=== PATIENT | female | born 1950 | race African-American/Black ===

== ENCOUNTER 2017-08-15 20:13 | Inpatient (IN) ==
[2017-08-15] MEDS ORDERED: SODIUM CHLORIDE 0.9% 500 ML IV STA ×2 (20:59→22:55)
[2017-08-15] MEDS ORDERED: MORPHINE 4 MG/1 ML VIAL IV STA ×2 (20:59→22:55)
[2017-08-15] MEDS ORDERED: ALUM/MAG/SIMETH/LIDO VISC 1:1 30 ML BOTTLE PO STA (20:59)
[2017-08-15] MEDS ORDERED: ONDANSETRON 4 MG/2 ML VIAL IV STA (20:59)
[2017-08-15 21:19] LABS: Basophils % 0.2 % (0.0-0.8); Hematocrit 41.6 VOL% (35.7-47.0); Hemoglobin 13.8 GM/DL (12.0-16.0); Immature Granulocytes % 0.5 %; Immature Granulocytes Absolute 0.06 #; Lymphocytes % 8.3 % (21.3-54.2); Mean Corpuscular HGB Conc 33.2 GM/DL (32-36); Mean Corpuscular Hemoglobin 30 PG (27-34); Mean Platelet Volume 9.4 FL (9.6-12.0); Monocytes # 0.2 10*3/uL (0.11-0.8); Monocytes % 1.6 % (1.7-12.7); Neutrophils # 10.9 10*3/uL (1.4-7.4); Neutrophils % 89.4 % (38.7-73.9); Platelet Count 215 T/CUMM (130-400); Red Blood Count 4.57 MC/CUMM (3.8-5.5); White Blood Count 12.2 T/CUMM (4-12)
[2017-08-15] MEDS ORDERED: MORPHINE 10 MG/1 ML VIAL ONE (21:40)
[2017-08-15 21:47] LABS: PT Patient Result 10.7 SECS
[2017-08-15 21:51] LABS: Alanine Aminotransferase 21 U/L (13-56); Albumin 3.3 G/DL (3.4-5.0); Alkaline Phosphatase 106 U/L (45-117); Amylase 158 U/L (25-115); Aspartate Amino Transferase 20 U/L (0-37); Blood Urea Nitrogen 30 MG/DL (7-18); Calcium 9.7 MG/DL (8.5-10.1); Glucose 182 MG/DL (74-106); Lactic Acid 3.4 MMOL/L (0.4-2.0); Osmolality,Calculated 283.8 MOS/KG (273-304); Potassium 4.4 MMOL/L (3.5-5.1); Sodium 137 MMOL/L (136-145); Total Protein 8.7 G/DL (6.4-8.3); Troponin I Only < 0.015 NG/ML (0.00-0.045)
[2017-08-15] MEDS ORDERED: cefTRIAXone 1,000 MG in SODIUM CHLORIDE 0.9% 100 ML IV STA (22:21)
[2017-08-15 22:23] LABS: ABG Base Excess -7.2 MMOL/L (-2.5-2.5); ABG HCO3 18.6 MMOL/L (20-26); ABG PCO2 33.2 MM HG (35-48); ABG PH 7.336 (7.35-7.45); ABG PO2 93.7 MM HG (80-95); ABG TCO2 15.7 MMOL/L (23-27)
[2017-08-15 22:27] LABS: Amorphous Crystals,Urine Few /HPF (Few); Apearance,Urine Slightly Hazy (Clear); Bacteria,Urine Occasional /HPF (Few); Bilirubin,Urine Negative (Negative); Blood, Urine Small mg/dL (Negative); Glucose,Urine (UA) Negative (Negative); Hyaline Casts,Urine 6 /LPF (0-3); Ketones,Urine Negative (Negative); Mucus,Urine Occasional /LPF (Occasional); Nitrite,Urine Negative (Negative); Protein,Urine Negative; RBC,Urine 1 /HPF (0-4); Squamous Epithelial Cell,Urine Occasional /HPF (0-10); Urine Color Yellow (Yellow); Urine Specific Gravity 1.011 (1.001-1.035); Urine Urobilinogen < 2.0 EU/DL (0.2-1.0); WBC,Urine 1 /HPF (0-6)
[2017-08-15] MEDS ORDERED: hydrALAZINE 20 MG/1 ML VIAL IV STA ×2 (22:55→23:55)
[2017-08-16] MEDS ORDERED: ACETAMINOPHEN 325 MG TABLET PO PRN (01:08)
[2017-08-16] MEDS ORDERED: PROMETHAZINE 25 MG/1 ML VIAL IM PRN (01:08)
[2017-08-16] MEDS ORDERED: MORPHINE 4 MG/1 ML VIAL IV PRN (01:08)
[2017-08-16] MEDS ORDERED: tiZANidine 4 MG TABLET PO PRN (01:18)
[2017-08-16] MEDS ORDERED: hydrALAZINE 20 MG/1 ML VIAL IV PRN (01:21)
[2017-08-16] MEDS ORDERED: tiZANidine 4 MG TABLET PO ONE (02:30)
[2017-08-16] MEDS: SODIUM CHLORIDE 0.9% 1,000 ML IV SCH ×3 (03:06→20:55)
[2017-08-16 06:16] LABS: Calcium 8.8 MG/DL (8.5-10.1); Potassium 5.9 MMOL/L (3.5-5.1)
[2017-08-16 08:09] LABS: Basophils % 0.3 % (0.0-0.8); Hematocrit 37.4 VOL% (35.7-47.0); Hemoglobin 12.1 GM/DL (12.0-16.0); Immature Granulocytes % 0.5 %; Immature Granulocytes Absolute 0.07 #; Lymphocytes # 1.7 10*3/uL (1.4-4.0); Lymphocytes % 12.8 % (21.3-54.2); Mean Corpuscular HGB Conc 32.4 GM/DL (32-36); Mean Corpuscular Hemoglobin 30 PG (27-34); Mean Corpuscular Volume 93.5 FL (87-102); Mean Platelet Volume 9.3 FL (9.6-12.0); Monocytes # 0.7 10*3/uL (0.11-0.8); Monocytes % 5.4 % (1.7-12.7); Neutrophils # 10.7 10*3/uL (1.4-7.4); Platelet Count 182 T/CUMM (130-400); Red Cell Distribution Width 13.1 % (9.3-17.3); White Blood Count 13.3 T/CUMM (4-12)
[2017-08-16] MEDS ORDERED: POTASSIUM CHLORIDE 20 MEQ TABLET PO SCH (09:00)
[2017-08-16] MEDS ORDERED: RIVAROXABAN 20 MG TABLET PO SCH (09:00)
[2017-08-16] MEDS: GABAPENTIN 400 MG CAPSULE PO SCH ×3 (09:22→21:15)
[2017-08-16] MEDS: FLUoxetine 20 MG CAPSULE PO SCH (09:22)
[2017-08-16] MEDS: CILOSTAZOL 100 MG TABLET PO SCH ×2 (09:22→21:15)
[2017-08-16] MEDS: ASPIRIN EC 81 MG TABLET PO SCH (09:23)
[2017-08-16] MEDS ORDERED: ENOXAPARIN 120 MG/0.8 ML SYRINGE SUBCUT SCH (13:30)
[2017-08-16] MEDS ORDERED: SODIUM POLYSTYRENE SULFATE 15 GM/60 ML BOTTLE PO STA (15:38)
[2017-08-16 16:59] LABS: Calcium 8.6 MG/DL (8.5-10.1); Osmolality,Calculated 287.5 MOS/KG (273-304); Potassium 4.7 MMOL/L (3.5-5.1)
[2017-08-16] MEDS: cefTRIAXone 1,000 MG in SYRINGE 1 EACH IV SCH (17:20)
[2017-08-16] MEDS: metroNIDAZOLE INJ 500 MG in PREMIX 1 EACH IV SCH ×2 (17:20→23:38)
[2017-08-16] MEDS: ATORVASTATIN 10 MG TABLET PO SCH (21:15)
[2017-08-16] MEDS: HEPARIN DRIP 25,000 UNITS/500 ML PREMIX IV SCH (21:24)
[2017-08-16 23:24] LABS: Hepatitis A Ab IgM Result Negative (Negative); Hepatitis B Core IgM Quant 0.09 Index; Hepatitis B Core IgM Result Negative (Negative); Hepatitis B Surface Ag Quant 0.99 Index; Hepatitis B Surface Ag Result Negative (Negative); Hepatitis C Virus Ab Quant 0.09 Index; Hepatitis C Virus Ab Result Negative (Negative)
[2017-08-17 03:21] LABS: Basophils # 0.1 10*3/uL (0.0-0.2); Basophils % 0.3 % (0.0-0.8); Eosinophils % 0.2 % (0.00-10.9); Hematocrit 34.3 VOL% (35.7-47.0); Hemoglobin 10.9 GM/DL (12.0-16.0); Immature Granulocytes % 0.9 %; Immature Granulocytes Absolute 0.17 #; Lymphocytes # 1.5 10*3/uL (1.4-4.0); Lymphocytes % 7.4 % (21.3-54.2); Mean Corpuscular HGB Conc 31.8 GM/DL (32-36); Mean Corpuscular Hemoglobin 30 PG (27-34); Mean Corpuscular Volume 95.3 FL (87-102); Mean Platelet Volume 9.4 FL (9.6-12.0); Monocytes # 1.4 10*3/uL (0.11-0.8); Monocytes % 7.1 % (1.7-12.7); Neutrophils # 16.7 10*3/uL (1.4-7.4); Neutrophils % 84.1 % (38.7-73.9); Platelet Count 147 T/CUMM (130-400); Red Cell Distribution Width 13.2 % (9.3-17.3); White Blood Count 19.8 T/CUMM (4-12)
[2017-08-17] MEDS: SODIUM CHLORIDE 0.9% 1,000 ML IV SCH ×2 (03:49→05:54)
[2017-08-17 03:50] LABS: Osmolality,Calculated 287.8 MOS/KG (273-304); Potassium 4.9 MMOL/L (3.5-5.1)
[2017-08-17] MEDS: FLUoxetine 20 MG CAPSULE PO SCH (08:03)
[2017-08-17] MEDS: metroNIDAZOLE INJ 500 MG in PREMIX 1 EACH IV SCH ×2 (08:03→16:33)
[2017-08-17] MEDS: CILOSTAZOL 100 MG TABLET PO SCH ×2 (08:03→21:15)
[2017-08-17] MEDS: ASPIRIN EC 81 MG TABLET PO SCH (08:03)
[2017-08-17] MEDS ORDERED: PHENOL 1.4% THROAT SPRAY 177 ML BOTTLE PO PRN (08:11)
[2017-08-17] MEDS ORDERED: ceFAZolin 1,000 MG in SYRINGE 1 EACH IV ONE (09:55)
[2017-08-17] MEDS ORDERED: BUPIVACAINE MPF 0.25% /EPI 30 ML VIAL ONE (11:32)
[2017-08-17] MEDS ORDERED: HEPARIN 5,000 UNIT/1 ML VIAL ONE (11:32)
[2017-08-17] MEDS ORDERED: LIDOCAINE 1%/EPI INJ 20 ML VIAL ONE (11:33)
[2017-08-17] MEDS ORDERED: MIDAZOLAM 2 MG/2 ML VIAL ONE (15:12)
[2017-08-17] MEDS ORDERED: SODIUM CHLORIDE 0.9% 100 ML IV ONE (15:12)
[2017-08-17] MEDS ORDERED: fentaNYL 100 MCG/2 ML VIAL ONE (15:12)
[2017-08-17] MEDS ORDERED: PROPOFOL 200 MG/20 ML VIAL IV ONE (15:12)
[2017-08-17] MEDS: cefTRIAXone 1,000 MG in SYRINGE 1 EACH IV SCH (16:40)
[2017-08-17] MEDS: HEPARIN DRIP 25,000 UNITS/500 ML PREMIX IV SCH (19:06)
[2017-08-17] MEDS: ATORVASTATIN 10 MG TABLET PO SCH (21:15)
[2017-08-18] MEDS: metroNIDAZOLE INJ 500 MG in PREMIX 1 EACH IV SCH ×3 (01:50→16:34)
[2017-08-18 04:07] LABS: Basophils % 0.2 % (0.0-0.8); Eosinophils % 0.1 % (0.00-10.9); Hematocrit 28.4 VOL% (35.7-47.0); Hemoglobin 9.5 GM/DL (12.0-16.0); Immature Granulocytes % 5.2 %; Immature Granulocytes Absolute 0.95 #; Lymphocytes # 1.1 10*3/uL (1.4-4.0); Lymphocytes % 6.1 % (21.3-54.2); Mean Corpuscular HGB Conc 33.5 GM/DL (32-36); Mean Corpuscular Hemoglobin 31 PG (27-34); Mean Corpuscular Volume 91.6 FL (87-102); Mean Platelet Volume 9.8 FL (9.6-12.0); Monocytes # 1.4 10*3/uL (0.11-0.8); Monocytes % 7.8 % (1.7-12.7); Neutrophils # 14.6 10*3/uL (1.4-7.4); Neutrophils % 80.6 % (38.7-73.9); Platelet Count 113 T/CUMM (130-400); Red Cell Distribution Width 13.4 % (9.3-17.3); White Blood Count 18.1 T/CUMM (4-12)
[2017-08-18 04:24] LABS: Calcium 7.3 MG/DL (8.5-10.1); Osmolality,Calculated 287.7 MOS/KG (273-304); Potassium 4.2 MMOL/L (3.5-5.1)
[2017-08-18 06:30] LABS: Band Neutrophils 4 % (0-10); Lymphocytes 4 % (20-55); Platelet Estimate Adequate; Segmented Neutrophils 92 % (50-85); Total Cells Counted 100
[2017-08-18] MEDS: FLUoxetine 20 MG CAPSULE PO SCH (08:04)
[2017-08-18] MEDS: HEPARIN DRIP 25,000 UNITS/500 ML PREMIX IV SCH ×2 (08:04→22:18)
[2017-08-18] MEDS: ASPIRIN EC 81 MG TABLET PO SCH (08:04)
[2017-08-18] MEDS: CILOSTAZOL 100 MG TABLET PO SCH ×2 (08:04→20:58)
[2017-08-18] MEDS ORDERED: HEPARIN 10,000 UNIT/10 ML VIAL IV PRN (09:54)
[2017-08-18] MEDS ORDERED: ALTEPLASE 2 MG VIAL INTRACATH PRN (10:57)
[2017-08-18] MEDS: cefTRIAXone 1,000 MG in SYRINGE 1 EACH IV SCH (16:34)
[2017-08-18] MEDS: ATORVASTATIN 10 MG TABLET PO SCH (20:58)
[2017-08-19] MEDS: metroNIDAZOLE INJ 500 MG in PREMIX 1 EACH IV SCH ×3 (02:36→16:14)
[2017-08-19] MEDS: ALUMINUM/MAGNES/SIMETH MAX STR 30 ML UDCUP PO PRN ×2 (05:01→13:46)
[2017-08-19 05:07] LABS: Basophils % 0.2 % (0.0-0.8); Eosinophils # 0.1 10*3/uL (0.0-0.87); Eosinophils % 0.5 % (0.00-10.9); Hematocrit 26.9 VOL% (35.7-47.0); Hemoglobin 9.2 GM/DL (12.0-16.0); Immature Granulocytes % 3.5 %; Lymphocytes # 1.3 10*3/uL (1.4-4.0); Lymphocytes % 7.4 % (21.3-54.2); Mean Corpuscular HGB Conc 34.2 GM/DL (32-36); Mean Corpuscular Hemoglobin 31 PG (27-34); Mean Corpuscular Volume 89.4 FL (87-102); Mean Platelet Volume 11.2 FL (9.6-12.0); Monocytes # 1.6 10*3/uL (0.11-0.8); Monocytes % 9.3 % (1.7-12.7); Neutrophils # 13.5 10*3/uL (1.4-7.4); Neutrophils % 79.1 % (38.7-73.9); Platelet Count 129 T/CUMM (130-400); Red Blood Count 3.01 MC/CUMM (3.8-5.5); Red Cell Distribution Width 13.3 % (9.3-17.3); White Blood Count 17.1 T/CUMM (4-12)
[2017-08-19 05:30] LABS: Calcium 7.5 MG/DL (8.5-10.1); Potassium 3.1 MMOL/L (3.5-5.1)
[2017-08-19 05:56] LABS: Band Neutrophils 5 % (0-10); Lymphocytes 10 % (20-55); Platelet Estimate Decreased; Segmented Neutrophils 83 % (50-85); Total Cells Counted 100
[2017-08-19] MEDS: ASPIRIN EC 81 MG TABLET PO SCH (08:00)
[2017-08-19] MEDS: CILOSTAZOL 100 MG TABLET PO SCH ×2 (08:00→21:09)
[2017-08-19] MEDS: FLUoxetine 20 MG CAPSULE PO SCH (08:00)
[2017-08-19] MEDS: HEPARIN DRIP 25,000 UNITS/500 ML PREMIX IV SCH ×2 (12:30→21:12)
[2017-08-19] MEDS: DOCUSATE SODIUM 100 MG CAPSULE PO SCH ×2 (13:47→21:09)
[2017-08-19] MEDS: cefTRIAXone 1,000 MG in SYRINGE 1 EACH IV SCH (16:14)
[2017-08-19] MEDS ORDERED: cloNIDine 0.1 MG TABLET PO PRN (19:02)
[2017-08-19] MEDS: ATORVASTATIN 10 MG TABLET PO SCH (21:10)
[2017-08-19] MEDS: GABAPENTIN 400 MG CAPSULE PO SCH (21:10)
[2017-08-20] MEDS: metroNIDAZOLE INJ 500 MG in PREMIX 1 EACH IV SCH ×3 (00:18→17:01)
[2017-08-20 05:32] LABS: Basophils % 0.2 % (0.0-0.8); Eosinophils # 0.1 10*3/uL (0.0-0.87); Eosinophils % 0.7 % (0.00-10.9); Hematocrit 26.1 VOL% (35.7-47.0); Hemoglobin 8.6 GM/DL (12.0-16.0); Immature Granulocytes % 2.6 %; Immature Granulocytes Absolute 0.45 #; Lymphocytes # 1.3 10*3/uL (1.4-4.0); Lymphocytes % 7.8 % (21.3-54.2); Mean Corpuscular Hemoglobin 30 PG (27-34); Mean Platelet Volume 10.8 FL (9.6-12.0); Monocytes # 1.4 10*3/uL (0.11-0.8); Monocytes % 8.3 % (1.7-12.7); Neutrophils # 13.9 10*3/uL (1.4-7.4); Neutrophils % 80.4 % (38.7-73.9); Platelet Count 145 T/CUMM (130-400); Red Cell Distribution Width 13.1 % (9.3-17.3); White Blood Count 17.2 T/CUMM (4-12)
[2017-08-20 05:50] LABS: Calcium 7.5 MG/DL (8.5-10.1); Osmolality,Calculated 284.1 MOS/KG (273-304)
[2017-08-20] MEDS: DOCUSATE SODIUM 100 MG CAPSULE PO SCH ×2 (09:34→21:28)
[2017-08-20] MEDS: CILOSTAZOL 100 MG TABLET PO SCH ×2 (09:34→21:27)
[2017-08-20] MEDS: GABAPENTIN 400 MG CAPSULE PO SCH ×3 (09:34→21:27)
[2017-08-20] MEDS: ASPIRIN EC 81 MG TABLET PO SCH (09:34)
[2017-08-20] MEDS: FLUoxetine 20 MG CAPSULE PO SCH (09:34)
[2017-08-20] MEDS: cefTRIAXone 1,000 MG in SYRINGE 1 EACH IV SCH (16:56)
[2017-08-20] MEDS: HEPARIN DRIP 25,000 UNITS/500 ML PREMIX IV SCH ×2 (17:50→21:29)
[2017-08-20] MEDS: ATORVASTATIN 10 MG TABLET PO SCH (21:27)
[2017-08-20] MEDS: POTASSIUM CHLORIDE 20 MEQ TABLET PO PRN (21:27)
[2017-08-21] MEDS: POTASSIUM CHLORIDE 20 MEQ TABLET PO PRN ×4 (00:04→08:55)
[2017-08-21] MEDS ORDERED: SIMETHICONE CHEW 125 MG TABLET PO PRN (00:45)
[2017-08-21] MEDS: metroNIDAZOLE INJ 500 MG in PREMIX 1 EACH IV SCH ×3 (01:35→16:39)
[2017-08-21 05:53] LABS: Basophils % 0.2 % (0.0-0.8); Eosinophils # 0.2 10*3/uL (0.0-0.87); Eosinophils % 1.3 % (0.00-10.9); Hematocrit 25.5 VOL% (35.7-47.0); Hemoglobin 8.9 GM/DL (12.0-16.0); Immature Granulocytes % 2.2 %; Immature Granulocytes Absolute 0.28 #; Lymphocytes # 1.3 10*3/uL (1.4-4.0); Mean Corpuscular HGB Conc 34.9 GM/DL (32-36); Mean Corpuscular Hemoglobin 30 PG (27-34); Mean Platelet Volume 10.9 FL (9.6-12.0); Monocytes # 1.4 10*3/uL (0.11-0.8); Monocytes % 11.2 % (1.7-12.7); Neutrophils # 9.4 10*3/uL (1.4-7.4); Neutrophils % 75.1 % (38.7-73.9); Platelet Count 170 T/CUMM (130-400); Red Blood Count 2.93 MC/CUMM (3.8-5.5); Red Cell Distribution Width 13.1 % (9.3-17.3); White Blood Count 12.5 T/CUMM (4-12)
[2017-08-21 06:25] LABS: Calcium 7.8 MG/DL (8.5-10.1); Osmolality,Calculated 282.8 MOS/KG (273-304); Potassium 3.3 MMOL/L (3.5-5.1)
[2017-08-21] MEDS: DOCUSATE SODIUM 100 MG CAPSULE PO SCH ×2 (08:54→20:46)
[2017-08-21] MEDS: GABAPENTIN 400 MG CAPSULE PO SCH ×3 (08:54→20:46)
[2017-08-21] MEDS: ASPIRIN EC 81 MG TABLET PO SCH (08:54)
[2017-08-21] MEDS: FLUoxetine 20 MG CAPSULE PO SCH (08:54)
[2017-08-21] MEDS: CILOSTAZOL 100 MG TABLET PO SCH (08:57)
[2017-08-21] MEDS: PANTOPRAZOLE 40 MG TABLET PO SCH ×2 (12:15→20:46)
[2017-08-21] MEDS: cefTRIAXone 1,000 MG in SYRINGE 1 EACH IV SCH (16:34)
[2017-08-21] MEDS: ATORVASTATIN 10 MG TABLET PO SCH (20:46)
[2017-08-21] MEDS: HEPARIN DRIP 25,000 UNITS/500 ML PREMIX IV SCH ×2 (20:48→23:55)
[2017-08-22] MEDS: metroNIDAZOLE INJ 500 MG in PREMIX 1 EACH IV SCH ×2 (02:05→22:18)
[2017-08-22] MEDS: ASPIRIN EC 81 MG TABLET PO SCH (13:26)
[2017-08-22] MEDS: DOCUSATE SODIUM 100 MG CAPSULE PO SCH (13:26)
[2017-08-22] MEDS: PANTOPRAZOLE 40 MG TABLET PO SCH ×2 (13:26→21:43)
[2017-08-22] MEDS: FLUoxetine 20 MG CAPSULE PO SCH (13:26)
[2017-08-22] MEDS: GABAPENTIN 400 MG CAPSULE PO SCH ×3 (13:26→21:43)
[2017-08-22] MEDS: metroNIDAZOLE 500 MG TABLET PO SCH ×2 (14:27→21:43)
[2017-08-22] MEDS: cefTRIAXone 1,000 MG in SYRINGE 1 EACH IV SCH (16:12)
[2017-08-22] MEDS ORDERED: DOCUSATE SODIUM 100 MG CAPSULE PO PRN (17:16)
[2017-08-22] MEDS: HEPARIN DRIP 25,000 UNITS/500 ML PREMIX IV SCH ×2 (17:56→22:18)
[2017-08-22] MEDS: ATORVASTATIN 10 MG TABLET PO SCH (21:43)
[2017-08-23 06:04] LABS: Calcium 7.8 MG/DL (8.5-10.1); Osmolality,Calculated 281.8 MOS/KG (273-304); Potassium 3.3 MMOL/L (3.5-5.1)
[2017-08-23] MEDS: SODIUM CHLORIDE 0.9% 250 ML IV SCH ×2 (08:08→21:05)
[2017-08-23] MEDS ORDERED: THROMBIN TOPICAL (RECOMBINANT) 5,000 UNIT VIAL TOP ONE (08:30)
[2017-08-23] MEDS ORDERED: BUPIVACAINE MPF 0.25% 30 ML VIAL ONE (08:30)
[2017-08-23] MEDS ORDERED: HEPARIN 5,000 UNIT/1 ML VIAL ONE (08:30)
[2017-08-23] MEDS ORDERED: LIDOCAINE 1%/EPI INJ 20 ML VIAL ONE (08:30)
[2017-08-23] MEDS ORDERED: POTASSIUM CHLORIDE 20 MEQ TABLET PO ONE (08:49)
[2017-08-23] MEDS ORDERED: SEVOFLURANE 1 UNIT/15 MINUTE INH ONE (09:57)
[2017-08-23] MEDS ORDERED: PROPOFOL 200 MG/20 ML VIAL IV ONE (09:57)
[2017-08-23] MEDS ORDERED: DEXAMETHASONE 10 MG/1 ML VIAL ONE (09:58)
[2017-08-23] MEDS ORDERED: MIDAZOLAM 2 MG/2 ML VIAL ONE (09:58)
[2017-08-23] MEDS ORDERED: ONDANSETRON 4 MG/2 ML VIAL ONE (09:58)
[2017-08-23] MEDS ORDERED: PHENYLEPHRINE 1 MG/10 ML SYRINGE IV ONE (09:58)
[2017-08-23] MEDS ORDERED: fentaNYL 100 MCG/2 ML VIAL ONE (09:58)
[2017-08-23] MEDS: ASPIRIN EC 81 MG TABLET PO SCH (11:46)
[2017-08-23] MEDS: PANTOPRAZOLE 40 MG TABLET PO SCH ×2 (11:46→21:07)
[2017-08-23] MEDS: GABAPENTIN 400 MG CAPSULE PO SCH ×3 (11:46→21:07)
[2017-08-23] MEDS: metroNIDAZOLE 500 MG TABLET PO SCH ×3 (11:46→21:07)
[2017-08-23] MEDS: FLUoxetine 20 MG CAPSULE PO SCH (11:47)
[2017-08-23] MEDS: HEPARIN DRIP 25,000 UNITS/500 ML PREMIX IV SCH ×2 (12:36→18:17)
[2017-08-23] MEDS ORDERED: WARFARIN 10 MG TABLET PO ONE (14:36)
[2017-08-23] MEDS ORDERED: RIVAROXABAN 20 MG TABLET PO ONE (21:00)
[2017-08-23] MEDS: CILOSTAZOL 100 MG TABLET PO SCH (21:07)
[2017-08-23] MEDS: ATORVASTATIN 10 MG TABLET PO SCH (21:07)
[2017-08-24 03:43] LABS: Basophils % 0.2 % (0.0-0.8); Eosinophils # 0.1 10*3/uL (0.0-0.87); Eosinophils % 0.6 % (0.00-10.9); Hematocrit 26.6 VOL% (35.7-47.0); Immature Granulocytes % 2.8 %; Immature Granulocytes Absolute 0.39 #; Lymphocytes # 2.3 10*3/uL (1.4-4.0); Lymphocytes % 16.6 % (21.3-54.2); Mean Corpuscular HGB Conc 33.8 GM/DL (32-36); Mean Corpuscular Hemoglobin 30 PG (27-34); Mean Corpuscular Volume 88.7 FL (87-102); Mean Platelet Volume 10.4 FL (9.6-12.0); Monocytes # 0.8 10*3/uL (0.11-0.8); Neutrophils # 10.3 10*3/uL (1.4-7.4); Neutrophils % 73.8 % (38.7-73.9); Platelet Count 200 T/CUMM (130-400); Red Cell Distribution Width 13.3 % (9.3-17.3); White Blood Count 13.9 T/CUMM (4-12)
[2017-08-24 03:59] LABS: INR 1.2; PT Patient Result 12.2 SECS
[2017-08-24 04:12] LABS: Calcium 7.6 MG/DL (8.5-10.1); Potassium 3.4 MMOL/L (3.5-5.1)
[2017-08-24 04:55] LABS: Hypochromasia 1+
[2017-08-24 04:56] LABS: Microcytosis 1+; Ovalocytes Slight; Platelet Estimate Normal
[2017-08-24] MEDS ORDERED: RIVAROXABAN 20 MG TABLET PO SCH (08:00)
[2017-08-24] MEDS ORDERED: WARFARIN 10 MG TABLET PO ONE (08:50)
[2017-08-24] MEDS: GABAPENTIN 400 MG CAPSULE PO SCH ×3 (09:19→20:57)
[2017-08-24] MEDS: FLUoxetine 20 MG CAPSULE PO SCH (09:19)
[2017-08-24] MEDS: PANTOPRAZOLE 40 MG TABLET PO SCH ×2 (09:19→20:57)
[2017-08-24] MEDS: CILOSTAZOL 100 MG TABLET PO SCH ×2 (09:19→20:57)
[2017-08-24] MEDS: ASPIRIN EC 81 MG TABLET PO SCH (09:19)
[2017-08-24] MEDS: metroNIDAZOLE 500 MG TABLET PO SCH (09:19)
[2017-08-24] MEDS: HEPARIN DRIP 25,000 UNITS/500 ML PREMIX IV SCH (09:48)
[2017-08-24] MEDS: SODIUM CHLORIDE 0.9% 250 ML IV SCH (09:54)
[2017-08-24] MEDS ORDERED: WARFARIN 7.5 MG TABLET PO SCH (18:00)
[2017-08-24] MEDS: ATORVASTATIN 10 MG TABLET PO SCH (20:57)
[2017-08-25 01:13] LABS: Basophils % 0.3 % (0.0-0.8); Eosinophils # 0.2 10*3/uL (0.0-0.87); Eosinophils % 1.9 % (0.00-10.9); Hematocrit 26.3 VOL% (35.7-47.0); Immature Granulocytes % 1.8 %; Immature Granulocytes Absolute 0.22 #; Lymphocytes # 2.5 10*3/uL (1.4-4.0); Lymphocytes % 19.7 % (21.3-54.2); Mean Corpuscular HGB Conc 34.2 GM/DL (32-36); Mean Corpuscular Hemoglobin 30 PG (27-34); Mean Platelet Volume 10.6 FL (9.6-12.0); Monocytes # 0.6 10*3/uL (0.11-0.8); Monocytes % 5.1 % (1.7-12.7); Neutrophils # 8.9 10*3/uL (1.4-7.4); Neutrophils % 71.2 % (38.7-73.9); Platelet Count 240 T/CUMM (130-400); Red Blood Count 2.99 MC/CUMM (3.8-5.5); Red Cell Distribution Width 13.4 % (9.3-17.3); White Blood Count 12.4 T/CUMM (4-12)
[2017-08-25 01:20] LABS: INR 1.9; PT Patient Result 19.6 SECS
[2017-08-25 02:23] LABS: Burr Cells 2+; Hypochromasia Slight; Platelet Estimate Normal
[2017-08-25] MEDS: HEPARIN DRIP 25,000 UNITS/500 ML PREMIX IV SCH (07:00)
[2017-08-25] MEDS: SODIUM CHLORIDE 0.9% 250 ML IV SCH ×2 (07:16→12:27)
[2017-08-25] MEDS: CILOSTAZOL 100 MG TABLET PO SCH ×2 (09:26→20:41)
[2017-08-25] MEDS: GABAPENTIN 400 MG CAPSULE PO SCH ×3 (09:26→20:41)
[2017-08-25] MEDS: ASPIRIN EC 81 MG TABLET PO SCH (09:26)
[2017-08-25] MEDS: PANTOPRAZOLE 40 MG TABLET PO SCH ×2 (09:26→20:41)
[2017-08-25] MEDS: FLUoxetine 20 MG CAPSULE PO SCH (09:26)
[2017-08-25 11:03] LABS: INR 2.4
[2017-08-25 11:15] LABS: PT Patient Result 24.3 SECS; Partial Thromboplastin Time 95.5 SECS (0-40)
[2017-08-25] MEDS ORDERED: WARFARIN 7.5 MG TABLET PO SCH (18:00)
[2017-08-25] MEDS: ATORVASTATIN 10 MG TABLET PO SCH (20:41)
[2017-08-26 04:41] LABS: INR 3.2
[2017-08-26 05:32] LABS: PT Patient Result 32.1 SECS
[2017-08-26 05:35] LABS: Partial Thromboplastin Time 133.3 SECS (0-40)
[2017-08-26] MEDS: HEPARIN DRIP 25,000 UNITS/500 ML PREMIX IV SCH (07:54)
[2017-08-26] MEDS: SODIUM CHLORIDE 0.9% 250 ML IV SCH (08:00)
[2017-08-26] MEDS: ASPIRIN EC 81 MG TABLET PO SCH (09:01)
[2017-08-26] MEDS: PANTOPRAZOLE 40 MG TABLET PO SCH (09:01)
[2017-08-26] MEDS: CILOSTAZOL 100 MG TABLET PO SCH (09:01)
[2017-08-26] MEDS: FLUoxetine 20 MG CAPSULE PO SCH (09:01)
[2017-08-26] MEDS: GABAPENTIN 400 MG CAPSULE PO SCH (09:01)
[2017-08-26 09:53] VITALS: BP 147/75
[2017-08-26] MEDS ORDERED: WARFARIN 5 MG TABLET PO SCH (18:00)
== END 2017-08-26 10:20 | disposition home or self-care (01) | DRG 981 ==
LOC: N.ED 20:13 → SUATTDRO 08-16 01:06 → N.EDINP 08-16 01:06 → N.2E 08-16 02:09 → N.ICU 08-16 19:04 → N.TELEN 08-19 17:23
PROVIDERS: ADMIT Internal Medicine; ATTEND Family Medicine

== ENCOUNTER 2017-09-10 19:23 | Inpatient (IN) ==
[2017-09-10 20:37] LABS: Basophils # 0.1 10*3/uL (0.0-0.2); Basophils % 0.4 % (0.0-0.8); Eosinophils % 0.1 % (0.00-10.9); Hematocrit 28.9 VOL% (35.7-47.0); Hemoglobin 9.4 GM/DL (12.0-16.0); Immature Granulocytes % 0.7 %; Immature Granulocytes Absolute 0.09 #; Lymphocytes # 1.3 10*3/uL (1.4-4.0); Lymphocytes % 10.8 % (21.3-54.2); Mean Corpuscular HGB Conc 32.5 GM/DL (32-36); Mean Corpuscular Hemoglobin 30 PG (27-34); Mean Platelet Volume 9.9 FL (9.6-12.0); Monocytes # 0.8 10*3/uL (0.11-0.8); Monocytes % 6.7 % (1.7-12.7); NRBC # 0.02 10*3/uL; Neutrophils # 9.9 10*3/uL (1.4-7.4); Neutrophils % 81.3 % (38.7-73.9); Platelet Count 333 T/CUMM (130-400); Red Blood Count 3.14 MC/CUMM (3.8-5.5); Red Cell Distribution Width 14.3 % (9.3-17.3); White Blood Count 12.2 T/CUMM (4-12)
[2017-09-10 21:03] LABS: Albumin 2.7 G/DL (3.4-5.0); Bilirubin,Total 0.5 MG/DL (0.2-1.0); Potassium 2.9 MMOL/L (3.5-5.1)
[2017-09-10 21:04] LABS: Lactic Acid 2.3 MMOL/L (0.4-2.0)
[2017-09-11 00:28] LABS: PT Patient Result 160.2 SECS
[2017-09-11 00:29] LABS: INR 15.1
[2017-09-11 05:29] LABS: Basophils # 0.1 10*3/uL (0.0-0.2); Basophils % 0.6 % (0.0-0.8); Eosinophils % 0.2 % (0.00-10.9); Hematocrit 26.8 VOL% (35.7-47.0); Hemoglobin 8.5 GM/DL (12.0-16.0); Immature Granulocytes % 0.4 %; Immature Granulocytes Absolute 0.04 #; Lymphocytes # 1.7 10*3/uL (1.4-4.0); Lymphocytes % 17.2 % (21.3-54.2); Mean Corpuscular HGB Conc 31.7 GM/DL (32-36); Mean Corpuscular Hemoglobin 30 PG (27-34); Mean Corpuscular Volume 93.4 FL (87-102); Mean Platelet Volume 10.4 FL (9.6-12.0); Monocytes % 10.6 % (1.7-12.7); Platelet Count 264 T/CUMM (130-400); Red Blood Count 2.87 MC/CUMM (3.8-5.5); Red Cell Distribution Width 14.6 % (9.3-17.3); White Blood Count 9.8 T/CUMM (4-12)
[2017-09-11 05:37] LABS: Calcium 7.9 MG/DL (8.5-10.1); Osmolality,Calculated 275.7 MOS/KG (273-304); Potassium 3.9 MMOL/L (3.5-5.1)
[2017-09-12 03:46] LABS: Basophils # 0.1 10*3/uL (0.0-0.2); Basophils % 0.5 % (0.0-0.8); Eosinophils # 0.2 10*3/uL (0.0-0.87); Eosinophils % 2.5 % (0.00-10.9); Hematocrit 24.4 VOL% (35.7-47.0); Hemoglobin 7.5 GM/DL (12.0-16.0); Immature Granulocytes % 0.7 %; Immature Granulocytes Absolute 0.06 #; Lymphocytes # 1.7 10*3/uL (1.4-4.0); Lymphocytes % 18.1 % (21.3-54.2); Mean Corpuscular HGB Conc 30.7 GM/DL (32-36); Mean Corpuscular Hemoglobin 29 PG (27-34); Mean Corpuscular Volume 95.3 FL (87-102); Mean Platelet Volume 10.1 FL (9.6-12.0); Monocytes # 1.2 10*3/uL (0.11-0.8); Monocytes % 12.7 % (1.7-12.7); Neutrophils % 65.5 % (38.7-73.9); Platelet Count 275 T/CUMM (130-400); Red Blood Count 2.56 MC/CUMM (3.8-5.5); Red Cell Distribution Width 14.7 % (9.3-17.3); White Blood Count 9.1 T/CUMM (4-12)
[2017-09-12 03:50] LABS: INR 4.3
[2017-09-12 04:01] LABS: PT Patient Result 43.2 SECS
[2017-09-12 04:12] LABS: Osmolality,Calculated 280.7 MOS/KG (273-304); Potassium 3.7 MMOL/L (3.5-5.1)
[2017-09-13 04:22] LABS: INR 2.2
[2017-09-13 04:23] LABS: Basophils % 0.3 % (0.0-0.8); Eosinophils # 0.1 10*3/uL (0.0-0.87); Eosinophils % 0.8 % (0.00-10.9); Hematocrit 26.9 VOL% (35.7-47.0); Hemoglobin 8.8 GM/DL (12.0-16.0); Immature Granulocytes % 0.6 %; Immature Granulocytes Absolute 0.08 #; Lymphocytes % 16.3 % (21.3-54.2); Mean Corpuscular HGB Conc 32.7 GM/DL (32-36); Mean Corpuscular Hemoglobin 30 PG (27-34); Mean Corpuscular Volume 92.1 FL (87-102); Mean Platelet Volume 10.7 FL (9.6-12.0); Monocytes # 1.4 10*3/uL (0.11-0.8); Monocytes % 10.8 % (1.7-12.7); Neutrophils # 8.9 10*3/uL (1.4-7.4); Neutrophils % 71.2 % (38.7-73.9); PT Patient Result 22.8 SECS; Platelet Count 347 T/CUMM (130-400); Red Blood Count 2.92 MC/CUMM (3.8-5.5); Red Cell Distribution Width 14.7 % (9.3-17.3); White Blood Count 12.5 T/CUMM (4-12)
[2017-09-13 04:32] LABS: ABG HCO3 32.5 MMOL/L (20-26); ABG Oxygen Saturation 83.8 % (95-100); ABG PCO2 44.2 MM HG (35-48); ABG PH 7.486 (7.35-7.45); ABG PO2 48.6 MM HG (80-95); ABG TCO2 30.8 MMOL/L (23-27); Allen Test Positive
[2017-09-13 04:48] LABS: Osmolality,Calculated 278.8 MOS/KG (273-304); Potassium 3.6 MMOL/L (3.5-5.1)
[2017-09-13 04:49] LABS: Troponin I Only 0.084 NG/ML (0.00-0.045)
[2017-09-13 11:49] LABS: Hepatitis A Ab IgM Quant 0.18 Index; Hepatitis A Ab IgM Result Negative (Negative); Hepatitis B Core IgM Quant 0.15 Index; Hepatitis B Core IgM Result Negative (Negative); Hepatitis B Surface Ag Quant 0.21 Index; Hepatitis B Surface Ag Result Negative (Negative); Hepatitis C Virus Ab Quant 0.08 Index; Hepatitis C Virus Ab Result Negative (Negative)
[2017-09-14 05:24] LABS: Basophils # 0.1 10*3/uL (0.0-0.2); Basophils % 0.5 % (0.0-0.8); Eosinophils # 0.2 10*3/uL (0.0-0.87); Eosinophils % 1.5 % (0.00-10.9); Hematocrit 26.4 VOL% (35.7-47.0); Hemoglobin 8.7 GM/DL (12.0-16.0); Immature Granulocytes % 0.5 %; Immature Granulocytes Absolute 0.05 #; Lymphocytes # 1.4 10*3/uL (1.4-4.0); Mean Corpuscular Hemoglobin 30 PG (27-34); Mean Corpuscular Volume 90.7 FL (87-102); Mean Platelet Volume 10.5 FL (9.6-12.0); Monocytes # 1.2 10*3/uL (0.11-0.8); Monocytes % 10.7 % (1.7-12.7); Neutrophils # 8.2 10*3/uL (1.4-7.4); Neutrophils % 73.8 % (38.7-73.9); Platelet Count 351 T/CUMM (130-400); Red Blood Count 2.91 MC/CUMM (3.8-5.5); Red Cell Distribution Width 14.8 % (9.3-17.3); White Blood Count 11.1 T/CUMM (4-12)
[2017-09-14 05:54] LABS: Calcium 8.8 MG/DL (8.5-10.1); Osmolality,Calculated 284.1 MOS/KG (273-304); Potassium 4.5 MMOL/L (3.5-5.1)
[2017-09-14 05:55] LABS: PT Patient Result 20.1 SECS
[2017-09-15 04:24] LABS: INR 2.2
[2017-09-15 04:33] LABS: PT Patient Result 22.2 SECS
[2017-09-17 04:13] LABS: Basophils # 0.1 10*3/uL (0.0-0.2); Basophils % 0.4 % (0.0-0.8); Eosinophils # 0.1 10*3/uL (0.0-0.87); Hematocrit 27.8 VOL% (35.7-47.0); Hemoglobin 9.1 GM/DL (12.0-16.0); Immature Granulocytes % 0.9 %; Lymphocytes # 1.2 10*3/uL (1.4-4.0); Lymphocytes % 10.5 % (21.3-54.2); Mean Corpuscular HGB Conc 32.7 GM/DL (32-36); Mean Corpuscular Hemoglobin 29 PG (27-34); Mean Corpuscular Volume 88.5 FL (87-102); Mean Platelet Volume 10.7 FL (9.6-12.0); Monocytes # 0.9 10*3/uL (0.11-0.8); Monocytes % 7.6 % (1.7-12.7); Neutrophils # 8.9 10*3/uL (1.4-7.4); Neutrophils % 79.6 % (38.7-73.9); Platelet Count 401 T/CUMM (130-400); Red Blood Count 3.14 MC/CUMM (3.8-5.5); Red Cell Distribution Width 14.6 % (9.3-17.3); White Blood Count 11.2 T/CUMM (4-12)
[2017-09-17 04:25] LABS: Calcium 8.8 MG/DL (8.5-10.1); INR 2.6; Osmolality,Calculated 292.1 MOS/KG (273-304); Potassium 5.2 MMOL/L (3.5-5.1)
[2017-09-18 06:17] LABS: Calcium 8.1 MG/DL (8.5-10.1); Potassium 4.8 MMOL/L (3.5-5.1)
[2017-09-19 05:01] LABS: INR 2.6
[2017-09-19 05:06] LABS: PT Patient Result 26.8 SECS
[2017-09-19 05:21] LABS: Potassium 4.7 MMOL/L (3.5-5.1)
[2017-09-19 16:29] VITALS: BP 139/62
== END 2017-09-19 17:00 | disposition home health service (06) | DRG 308 ==
LOC: N.ED 19:23 → N.EDINP 21:46 → SUPCPDRO 21:46 → SUATTDRO 21:46 → N.CC 09-11 18:42 → N.TELES 09-14 17:51
PROVIDERS: ADMIT Internal Medicine; ATTEND Hospitalist

== ENCOUNTER 2018-04-19 15:54 | Inpatient (IN) ==
[2018-04-19] MEDS ORDERED: ONDANSETRON 4 MG/2 ML VIAL ONE (16:42)
[2018-04-19] MEDS ORDERED: MAGNESIUM SULF RIDER 2 GM in PREMIX 1 EACH IV STA (16:49)
[2018-04-19] MEDS ORDERED: MAGNESIUM SULF RIDER 50 ML IV ONE (16:51)
[2018-04-19 16:59] LABS: Basophils # 0.1 10*3/uL (0.0-0.2); Basophils % 0.8 % (0.0-0.8); Eosinophils # 0.1 10*3/uL (0.0-0.87); Eosinophils % 1.3 % (0.00-10.9); Hemoglobin 11.3 GM/DL (12.0-16.0); Immature Granulocytes % 0.5 %; Immature Granulocytes Absolute 0.05 #; Lymphocytes # 4.3 10*3/uL (1.4-4.0); Lymphocytes % 47.1 % (21.3-54.2); Mean Corpuscular HGB Conc 32.3 GM/DL (32-36); Mean Corpuscular Hemoglobin 30 PG (27-34); Mean Corpuscular Volume 93.8 FL (87-102); Mean Platelet Volume 10.6 FL (9.6-12.0); Monocytes # 1.2 10*3/uL (0.11-0.8); Monocytes % 13.2 % (1.7-12.7); Neutrophils # 3.4 10*3/uL (1.4-7.4); Neutrophils % 37.1 % (38.7-73.9); Platelet Count 167 T/CUMM (130-400); Red Blood Count 3.73 MC/CUMM (3.8-5.5); Red Cell Distribution Width 13.6 % (9.3-17.3); White Blood Count 9.2 T/CUMM (4-12)
[2018-04-19 17:14] LABS: INR 2.8
[2018-04-19] MEDS ORDERED: ONDANSETRON 4 MG/2 ML VIAL IV STA (17:25)
[2018-04-19 17:30] LABS: Osmolality,Calculated 272.7 MOS/KG (273-304); Potassium 3.2 MMOL/L (3.5-5.1)
[2018-04-19 17:31] LABS: Thyroid Stimulating Hormone 3.89 uIU/ml (0.358-3.74)
[2018-04-19 17:37] LABS: Lymphocytes 49 % (20-55); Segmented Neutrophils 42 % (50-85); Total Cells Counted 100
[2018-04-19] MEDS ORDERED: DOCUSATE SODIUM 100 MG CAPSULE PO PRN (21:45)
[2018-04-19] MEDS ORDERED: PROMETHAZINE 25 MG TABLET PO PRN (21:45)
[2018-04-19] MEDS ORDERED: ONDANSETRON 4 MG/2 ML VIAL IV PRN (21:45)
[2018-04-19] MEDS ORDERED: traZODone 50 MG TABLET PO PRN (21:45)
[2018-04-19] MEDS ORDERED: ACETAMINOPHEN 325 MG TABLET PO PRN (21:45)
[2018-04-19] MEDS ORDERED: POTASSIUM CHLORIDE 20 MEQ/15 ML UDCUP PO ONE (23:00)
[2018-04-19] MEDS: GABAPENTIN 400 MG CAPSULE PO SCH (23:05)
[2018-04-19] MEDS: ATORVASTATIN 40 MG TABLET PO SCH (23:06)
[2018-04-19 23:08] LABS: Troponin I 0.092 NG/ML (0.00-0.045)
[2018-04-20 04:41] LABS: Basophils % 0.5 % (0.0-0.8); Eosinophils # 0.1 10*3/uL (0.0-0.87); Eosinophils % 1.7 % (0.00-10.9); Hematocrit 29.8 VOL% (35.7-47.0); Hemoglobin 9.4 GM/DL (12.0-16.0); Immature Granulocytes % 0.3 %; Immature Granulocytes Absolute 0.02 #; Lymphocytes # 2.2 10*3/uL (1.4-4.0); Lymphocytes % 38.1 % (21.3-54.2); Mean Corpuscular HGB Conc 31.5 GM/DL (32-36); Mean Corpuscular Hemoglobin 30 PG (27-34); Mean Corpuscular Volume 95.5 FL (87-102); Monocytes # 0.7 10*3/uL (0.11-0.8); Monocytes % 12.7 % (1.7-12.7); Neutrophils # 2.7 10*3/uL (1.4-7.4); Neutrophils % 46.7 % (38.7-73.9); Platelet Count 145 T/CUMM (130-400); Red Blood Count 3.12 MC/CUMM (3.8-5.5); Red Cell Distribution Width 13.7 % (9.3-17.3); White Blood Count 5.8 T/CUMM (4-12)
[2018-04-20 04:53] LABS: INR 2.7
[2018-04-20 05:15] LABS: Alanine Aminotransferase 39 U/L (13-56); Albumin 2.6 G/DL (3.4-5.0); Alkaline Phosphatase 51 U/L (45-117); Aspartate Amino Transferase 49 U/L (0-37); Blood Urea Nitrogen 11 MG/DL (7-18); Calcium 8.6 MG/DL (8.5-10.1); Cholesterol 118 MG/DL (50-200); Glucose 74 MG/DL (74-106); HDL Cholesterol 47 MG/DL (40-60); Osmolality,Calculated 272.7 MOS/KG (273-304); Potassium 3.2 MMOL/L (3.5-5.1); Risk Ratio 2.51; Sodium 138 MMOL/L (136-145); Total Protein 6.4 G/DL (6.4-8.3); Triglycerides 87 MG/DL (2-150); VLDL CHOLESTEROL 17.4 MG/DL
[2018-04-20 05:35] LABS: PT Patient Result 28.8 SECS
[2018-04-20 05:38] LABS: Troponin I 0.118 NG/ML (0.00-0.045)
[2018-04-20] MEDS ORDERED: METOPROLOL TARTRATE 25 MG TABLET PO SCH (09:00)
[2018-04-20] MEDS ORDERED: FLUoxetine 20 MG CAPSULE PO SCH (09:00)
[2018-04-20] MEDS ORDERED: AMIODARONE 200 MG TABLET PO SCH (09:00)
[2018-04-20] MEDS ORDERED: POTASSIUM CHLORIDE 20 MEQ TABLET PO ONE (09:04)
[2018-04-20] MEDS: CHOLECALCIFEROL 1,000 UNIT TABLET PO SCH (10:56)
[2018-04-20] MEDS: GABAPENTIN 400 MG CAPSULE PO SCH ×3 (10:56→21:08)
[2018-04-20] MEDS: PANTOPRAZOLE 40 MG TABLET PO SCH (10:57)
[2018-04-20] MEDS: CALCITRIOL 0.25 MCG CAPSULE PO SCH (10:57)
[2018-04-20] MEDS: SEVELAMER CARBONATE 800 MG TABLET PO SCH ×3 (10:57→17:38)
[2018-04-20] MEDS: WARFARIN 3 MG TABLET PO SCH (17:38)
[2018-04-20] MEDS: ATORVASTATIN 40 MG TABLET PO SCH (21:08)
[2018-04-20] MEDS: METOPROLOL TARTRATE 25 MG TABLET PO SCH (21:08)
[2018-04-21 04:27] LABS: Basophils # 0.1 10*3/uL (0.0-0.2); Basophils % 0.8 % (0.0-0.8); Eosinophils # 0.2 10*3/uL (0.0-0.87); Eosinophils % 3.7 % (0.00-10.9); Hematocrit 29.3 VOL% (35.7-47.0); Immature Granulocytes % 0.5 %; Immature Granulocytes Absolute 0.03 #; Lymphocytes # 2.6 10*3/uL (1.4-4.0); Lymphocytes % 41.1 % (21.3-54.2); Mean Corpuscular HGB Conc 30.7 GM/DL (32-36); Mean Corpuscular Hemoglobin 30 PG (27-34); Mean Corpuscular Volume 98.3 FL (87-102); Mean Platelet Volume 11.2 FL (9.6-12.0); Monocytes # 0.7 10*3/uL (0.11-0.8); Monocytes % 10.4 % (1.7-12.7); Neutrophils # 2.7 10*3/uL (1.4-7.4); Neutrophils % 43.5 % (38.7-73.9); Platelet Count 138 T/CUMM (130-400); Red Blood Count 2.98 MC/CUMM (3.8-5.5); White Blood Count 6.2 T/CUMM (4-12)
[2018-04-21 04:52] LABS: Calcium 8.5 MG/DL (8.5-10.1); Osmolality,Calculated 275.8 MOS/KG (273-304); Potassium 3.8 MMOL/L (3.5-5.1)
[2018-04-21 05:18] LABS: Free T4 (Free Thyroxine) 1.27 NG/DL (0.76-1.46); Thyroid Stimulating Hormone 1.42 uIU/ml (0.358-3.74)
[2018-04-21] MEDS: SEVELAMER CARBONATE 800 MG TABLET PO SCH ×3 (08:41→17:42)
[2018-04-21] MEDS: POTASSIUM CHLORIDE 20 MEQ TABLET PO SCH (08:41)
[2018-04-21] MEDS: GABAPENTIN 400 MG CAPSULE PO SCH ×3 (08:42→22:07)
[2018-04-21] MEDS: CHOLECALCIFEROL 1,000 UNIT TABLET PO SCH (08:42)
[2018-04-21] MEDS: PANTOPRAZOLE 40 MG TABLET PO SCH (08:43)
[2018-04-21] MEDS: CALCITRIOL 0.25 MCG CAPSULE PO SCH (08:43)
[2018-04-21] MEDS: METOPROLOL TARTRATE 25 MG TABLET PO SCH ×3 (08:46→22:07)
[2018-04-21] MEDS ORDERED: LIDOCAINE/PRILOCAINE CREAM 5 GM TUBE TOP PRN (13:57)
[2018-04-21] MEDS: WARFARIN 3 MG TABLET PO SCH (17:42)
[2018-04-21] MEDS: ATORVASTATIN 40 MG TABLET PO SCH (22:07)
[2018-04-22 04:35] LABS: INR 3.2; Osmolality,Calculated 283.7 MOS/KG (273-304); PT Patient Result 34.8 SECS; Potassium 4.2 MMOL/L (3.5-5.1)
[2018-04-22] MEDS: SEVELAMER CARBONATE 800 MG TABLET PO SCH ×3 (12:39→16:21)
[2018-04-22] MEDS: GABAPENTIN 400 MG CAPSULE PO SCH ×3 (12:39→21:31)
[2018-04-22] MEDS: POTASSIUM CHLORIDE 20 MEQ TABLET PO SCH (13:28)
[2018-04-22] MEDS: PANTOPRAZOLE 40 MG TABLET PO SCH (13:28)
[2018-04-22] MEDS: CHOLECALCIFEROL 1,000 UNIT TABLET PO SCH (13:28)
[2018-04-22] MEDS: CALCITRIOL 0.25 MCG CAPSULE PO SCH (13:29)
[2018-04-22] MEDS: METOPROLOL TARTRATE 25 MG TABLET PO SCH (13:59)
[2018-04-22] MEDS: ATORVASTATIN 40 MG TABLET PO SCH (21:31)
[2018-04-23 03:50] LABS: INR 3.5
[2018-04-23 04:09] LABS: Calcium 8.5 MG/DL (8.5-10.1); Osmolality,Calculated 278.8 MOS/KG (273-304); Potassium 4.4 MMOL/L (3.5-5.1)
[2018-04-23 04:30] LABS: PT Patient Result 37.7 SECS
[2018-04-23] MEDS: POTASSIUM CHLORIDE 20 MEQ TABLET PO SCH (09:41)
[2018-04-23] MEDS: GABAPENTIN 400 MG CAPSULE PO SCH ×3 (09:41→20:05)
[2018-04-23] MEDS: PANTOPRAZOLE 40 MG TABLET PO SCH (09:41)
[2018-04-23] MEDS: SEVELAMER CARBONATE 800 MG TABLET PO SCH ×3 (09:41→16:49)
[2018-04-23] MEDS: CHOLECALCIFEROL 1,000 UNIT TABLET PO SCH (09:41)
[2018-04-23] MEDS: CALCITRIOL 0.25 MCG CAPSULE PO SCH (09:41)
[2018-04-23] MEDS ORDERED: ceFAZolin 1,000 MG in SYRINGE 1 EACH IV ONE (10:55)
[2018-04-23] MEDS ORDERED: ceFAZolin 1,000 MG VIAL IRRIG ONE (10:55)
[2018-04-23] MEDS: METOPROLOL SUCCINATE XL 25 MG TABLET PO SCH (12:52)
[2018-04-23] MEDS ORDERED: hydrALAZINE 20 MG/1 ML VIAL IV ONE (19:34)
[2018-04-23] MEDS: ATORVASTATIN 40 MG TABLET PO SCH (20:12)
[2018-04-24 04:08] LABS: Basophils # 0.1 10*3/uL (0.0-0.2); Basophils % 0.4 % (0.0-0.8); Eosinophils # 0.1 10*3/uL (0.0-0.87); Eosinophils % 0.6 % (0.00-10.9); Hematocrit 32.3 VOL% (35.7-47.0); Hemoglobin 10.3 GM/DL (12.0-16.0); Immature Granulocytes % 0.8 %; Lymphocytes # 1.9 10*3/uL (1.4-4.0); Mean Corpuscular HGB Conc 31.9 GM/DL (32-36); Mean Corpuscular Hemoglobin 31 PG (27-34); Mean Corpuscular Volume 95.6 FL (87-102); Monocytes # 0.9 10*3/uL (0.11-0.8); Monocytes % 6.9 % (1.7-12.7); Neutrophils # 9.5 10*3/uL (1.4-7.4); Neutrophils % 76.3 % (38.7-73.9); Platelet Count 177 T/CUMM (130-400); Red Blood Count 3.38 MC/CUMM (3.8-5.5); Red Cell Distribution Width 14.5 % (9.3-17.3); White Blood Count 12.4 T/CUMM (4-12)
[2018-04-24 04:19] LABS: Calcium 9.2 MG/DL (8.5-10.1); Osmolality,Calculated 281.1 MOS/KG (273-304); Potassium 5.9 MMOL/L (3.5-5.1)
[2018-04-24 04:20] LABS: INR 2.8
[2018-04-24 04:25] LABS: PT Patient Result 30.3 SECS
[2018-04-24 04:26] LABS: PT Patient Result 30.4 SECS
[2018-04-24 04:33] LABS: Calcium 9.1 MG/DL (8.5-10.1); Osmolality,Calculated 285.8 MOS/KG (273-304)
[2018-04-24] MEDS: POTASSIUM CHLORIDE 20 MEQ TABLET PO SCH (08:21)
[2018-04-24] MEDS: SEVELAMER CARBONATE 800 MG TABLET PO SCH ×3 (10:33→17:33)
[2018-04-24] MEDS: PANTOPRAZOLE 40 MG TABLET PO SCH (13:07)
[2018-04-24] MEDS: METOPROLOL SUCCINATE XL 25 MG TABLET PO SCH (13:07)
[2018-04-24] MEDS: GABAPENTIN 400 MG CAPSULE PO SCH ×3 (13:08→21:57)
[2018-04-24] MEDS: CHOLECALCIFEROL 1,000 UNIT TABLET PO SCH (13:08)
[2018-04-24] MEDS: CALCITRIOL 0.25 MCG CAPSULE PO SCH (13:08)
[2018-04-24] MEDS: amLODIPine 5 MG TABLET PO SCH (13:08)
[2018-04-24] MEDS: ATORVASTATIN 40 MG TABLET PO SCH (21:56)
[2018-04-25] MEDS ORDERED: SODIUM POLYSTYRENE SULFATE 15 GM/60 ML BOTTLE PO STA (00:09)
[2018-04-25 03:29] LABS: Calcium 9.3 MG/DL (8.5-10.1); Osmolality,Calculated 277.1 MOS/KG (273-304); Potassium 4.6 MMOL/L (3.5-5.1)
[2018-04-25 06:23] LABS: INR 1.9; PT Patient Result 20.3 SECS
[2018-04-25 08:15] LABS: Basophils % 0.3 % (0.0-0.8); Eosinophils % 0.3 % (0.00-10.9); Hemoglobin 9.7 GM/DL (12.0-16.0); Immature Granulocytes Absolute 0.11 #; Lymphocytes # 1.3 10*3/uL (1.4-4.0); Lymphocytes % 11.3 % (21.3-54.2); Mean Corpuscular HGB Conc 32.3 GM/DL (32-36); Mean Corpuscular Hemoglobin 30 PG (27-34); Mean Corpuscular Volume 93.2 FL (87-102); Mean Platelet Volume 10.2 FL (9.6-12.0); Monocytes % 8.5 % (1.7-12.7); Neutrophils # 9.1 10*3/uL (1.4-7.4); Neutrophils % 78.6 % (38.7-73.9); Platelet Count 163 T/CUMM (130-400); Red Blood Count 3.22 MC/CUMM (3.8-5.5); Red Cell Distribution Width 14.4 % (9.3-17.3); White Blood Count 11.5 T/CUMM (4-12)
[2018-04-25] MEDS: SEVELAMER CARBONATE 800 MG TABLET PO SCH ×3 (08:57→17:29)
[2018-04-25] MEDS: GABAPENTIN 400 MG CAPSULE PO SCH ×4 (09:00→21:39)
[2018-04-25] MEDS ORDERED: ceFAZolin 1,000 MG in SYRINGE 1 EACH IV ONE (11:00)
[2018-04-25] MEDS ORDERED: ceFAZolin 1,000 MG VIAL IRRIG ONE (11:00)
[2018-04-25] MEDS: CALCITRIOL 0.25 MCG CAPSULE PO SCH (11:00)
[2018-04-25] MEDS: CHOLECALCIFEROL 1,000 UNIT TABLET PO SCH (11:00)
[2018-04-25] MEDS: amLODIPine 5 MG TABLET PO SCH (11:20)
[2018-04-25] MEDS: PANTOPRAZOLE 40 MG TABLET PO SCH (11:20)
[2018-04-25] MEDS: METOPROLOL SUCCINATE XL 25 MG TABLET PO SCH (11:20)
[2018-04-25] MEDS ORDERED: LIDOCAINE 1% 20 ML VIAL ONE (11:55)
[2018-04-25] MEDS ORDERED: HEPARIN/NACL 0.9% 2 UNITS/ML 500 ML IV ONE (11:55)
[2018-04-25] MEDS ORDERED: MIDAZOLAM 2 MG/2 ML VIAL ONE ×2 (11:56→12:42)
[2018-04-25] MEDS ORDERED: fentaNYL 100 MCG/2 ML VIAL ONE ×2 (11:56→12:42)
[2018-04-25] MEDS ORDERED: VANCOMYCIN 500 MG VIAL ONE (12:03)
[2018-04-25] MEDS ORDERED: TISSUE ADHESIVE 1 EACH APPLICATOR TOP ONE (12:21)
[2018-04-25] MEDS ORDERED: hydrALAZINE 20 MG/1 ML VIAL ONE (12:23)
[2018-04-25] MEDS ORDERED: ACETAMINOPHEN/CODEINE 300-30 MG TABLET PO PRN (13:06)
[2018-04-25] MEDS: ceFAZolin 1,000 MG in SYRINGE 1 EACH IV SCH (18:32)
[2018-04-25] MEDS: METOPROLOL SUCCINATE XL 50 MG TABLET PO SCH (21:39)
[2018-04-25] MEDS: ATORVASTATIN 40 MG TABLET PO SCH (21:39)
[2018-04-26] MEDS: ceFAZolin 1,000 MG in SYRINGE 1 EACH IV SCH (05:08)
[2018-04-26 05:19] LABS: Basophils % 0.4 % (0.0-0.8); Eosinophils # 0.1 10*3/uL (0.0-0.87); Eosinophils % 1.7 % (0.00-10.9); Hematocrit 27.3 VOL% (35.7-47.0); Hemoglobin 8.8 GM/DL (12.0-16.0); Immature Granulocytes % 0.7 %; Immature Granulocytes Absolute 0.06 #; Lymphocytes # 1.8 10*3/uL (1.4-4.0); Lymphocytes % 21.1 % (21.3-54.2); Mean Corpuscular HGB Conc 32.2 GM/DL (32-36); Mean Corpuscular Hemoglobin 31 PG (27-34); Mean Corpuscular Volume 95.1 FL (87-102); Mean Platelet Volume 11.2 FL (9.6-12.0); Monocytes # 0.9 10*3/uL (0.11-0.8); Monocytes % 11.2 % (1.7-12.7); Neutrophils # 5.4 10*3/uL (1.4-7.4); Neutrophils % 64.9 % (38.7-73.9); Platelet Count 149 T/CUMM (130-400); Red Blood Count 2.87 MC/CUMM (3.8-5.5); Red Cell Distribution Width 14.6 % (9.3-17.3); White Blood Count 8.3 T/CUMM (4-12)
[2018-04-26] MEDS ORDERED: ceFAZolin 1,000 MG in SYRINGE 1 EACH IV SCH (05:30)
[2018-04-26 05:37] LABS: Calcium 8.9 MG/DL (8.5-10.1); Potassium 4.3 MMOL/L (3.5-5.1)
[2018-04-26 05:37] LABS: Calcium 8.7 MG/DL (8.5-10.1)
[2018-04-26] MEDS: GABAPENTIN 400 MG CAPSULE PO SCH ×3 (13:34→21:26)
[2018-04-26] MEDS: SEVELAMER CARBONATE 800 MG TABLET PO SCH ×3 (13:40→17:25)
[2018-04-26] MEDS: PANTOPRAZOLE 40 MG TABLET PO SCH (13:41)
[2018-04-26] MEDS: METOPROLOL SUCCINATE XL 50 MG TABLET PO SCH ×2 (13:41→21:26)
[2018-04-26] MEDS: CALCITRIOL 0.25 MCG CAPSULE PO SCH (13:41)
[2018-04-26] MEDS: amLODIPine 5 MG TABLET PO SCH (13:41)
[2018-04-26] MEDS: CHOLECALCIFEROL 1,000 UNIT TABLET PO SCH (13:41)
[2018-04-26] MEDS: ATORVASTATIN 40 MG TABLET PO SCH (21:26)
[2018-04-26] MEDS: cephALEXin 500 MG CAPSULE PO SCH (21:29)
[2018-04-26] MEDS: WARFARIN 3 MG TABLET PO SCH (21:30)
[2018-04-27] MEDS: CHOLECALCIFEROL 1,000 UNIT TABLET PO SCH (09:24)
[2018-04-27] MEDS: GABAPENTIN 400 MG CAPSULE PO SCH (09:24)
[2018-04-27] MEDS: cephALEXin 500 MG CAPSULE PO SCH (09:24)
[2018-04-27] MEDS: CALCITRIOL 0.25 MCG CAPSULE PO SCH (09:24)
[2018-04-27] MEDS: amLODIPine 5 MG TABLET PO SCH (09:25)
[2018-04-27] MEDS: PANTOPRAZOLE 40 MG TABLET PO SCH (09:25)
[2018-04-27] MEDS: METOPROLOL SUCCINATE XL 50 MG TABLET PO SCH (09:25)
[2018-04-27] MEDS: SEVELAMER CARBONATE 800 MG TABLET PO SCH ×2 (09:27→12:32)
[2018-04-27 12:40] VITALS: BP 138/63
== END 2018-04-27 14:00 | disposition home or self-care (01) | DRG 226 ==
LOC: N.ED 15:54 → SUATTDRO 19:10 → N.EDINP 19:10 → N.TELES 21:34
PROVIDERS: ADMIT Internal Medicine; ATTEND Internal Medicine
PROC: CLDCICD (2018-04-25 11:15)

== ENCOUNTER 2018-11-29 15:30 | Inpatient (IN) ==
[2018-11-29] MEDS ORDERED: METOCLOPRAMIDE 10 MG/2 ML VIAL IV STA (16:03)
[2018-11-29] MEDS ORDERED: ONDANSETRON 4 MG/2 ML VIAL IV STA (16:03)
[2018-11-29] MEDS ORDERED: PANTOPRAZOLE 40 MG VIAL IV STA (16:03)
[2018-11-29 16:29] LABS: Basophils % 0.4 % (0.0-0.8); Eosinophils # 0.1 10*3/uL (0.0-0.87); Eosinophils % 0.8 % (0.00-10.9); Hematocrit 22.3 VOL% (35.7-47.0); Hemoglobin 7.3 GM/DL (12.0-16.0); Immature Granulocytes % 0.5 %; Immature Granulocytes Absolute 0.04 #; Lymphocytes # 2.2 10*3/uL (1.4-4.0); Lymphocytes % 29.4 % (21.3-54.2); Mean Corpuscular HGB Conc 32.7 GM/DL (32-36); Mean Corpuscular Volume 94.5 FL (87-102); Mean Platelet Volume 9.9 FL (9.6-12.0); Monocytes % 7.8 % (1.7-12.7); Neutrophils % 61.1 % (38.7-73.9); Platelet Count 178 T/CUMM (130-400); Red Blood Count 2.36 MC/CUMM (3.8-5.5); Red Cell Distribution Width 13.8 % (9.3-17.3); White Blood Count 7.6 T/CUMM (4-12)
[2018-11-29 16:53] LABS: Alanine Aminotransferase 10 U/L (13-56); Albumin 2.6 G/DL (3.4-5.0); Alkaline Phosphatase 56 U/L (45-117); Amylase 112 U/L (25-115); Aspartate Amino Transferase 17 U/L (0-37); Blood Urea Nitrogen 16 MG/DL (7-18); Calcium 8.7 MG/DL (8.5-10.1); Estimated Glom Filtration Rate 17 ML/MIN; Glucose 72 MG/DL (74-106); Osmolality,Calculated 274.7 MOS/KG (273-304); Total Protein 7.2 G/DL (6.4-8.3); Troponin I 0.016 NG/ML (0.00-0.045)
[2018-11-29] MEDS ORDERED: POTASSIUM BICARB EFFERVESCENT 25 MEQ TABLET PO ONE (16:55)
[2018-11-29] MEDS ORDERED: ACETAMINOPHEN 325 MG TABLET PO PRN (19:09)
[2018-11-29] MEDS ORDERED: diphenhydrAMINE CAP 25 MG CAPSULE PO PRN (19:09)
[2018-11-29] MEDS ORDERED: guaiFENesin/DM ER 600-30 MG TABLET PO PRN (19:09)
[2018-11-29] MEDS ORDERED: ZALEPLON 5 MG CAPSULE PO PRN (19:09)
[2018-11-29] MEDS ORDERED: ONDANSETRON 4 MG/2 ML VIAL IV PRN (19:09)
[2018-11-29] MEDS: GABAPENTIN 400 MG CAPSULE PO SCH (21:01)
[2018-11-29] MEDS: METOPROLOL SUCCINATE XL 50 MG TABLET PO SCH (21:02)
[2018-11-30 05:14] LABS: Basophils # 0.1 10*3/uL (0.0-0.2); Basophils % 0.8 % (0.0-0.8); Eosinophils # 0.1 10*3/uL (0.0-0.87); Eosinophils % 1.9 % (0.00-10.9); Hematocrit 21.7 VOL% (35.7-47.0); Hemoglobin 6.9 GM/DL (12.0-16.0); Immature Granulocytes % 0.5 %; Immature Granulocytes Absolute 0.03 #; Lymphocytes % 32.9 % (21.3-54.2); Mean Corpuscular HGB Conc 31.8 GM/DL (32-36); Mean Corpuscular Volume 95.6 FL (87-102); Monocytes % 8.3 % (1.7-12.7); Neutrophils % 55.6 % (38.7-73.9); Platelet Count 150 T/CUMM (130-400); Red Blood Count 2.27 MC/CUMM (3.8-5.5); Red Cell Distribution Width 13.8 % (9.3-17.3); White Blood Count 5.9 T/CUMM (4-12)
[2018-11-30 05:45] LABS: % Iron Saturation 22.6 % (18-50)
[2018-11-30 05:56] LABS: Alanine Aminotransferase 9 U/L (13-56); Albumin 2.4 G/DL (3.4-5.0); Alkaline Phosphatase 53 U/L (45-117); Aspartate Amino Transferase 16 U/L (0-37); Bilirubin,Total < 0.39 MG/DL (0.2-1.0); Blood Urea Nitrogen 34 MG/DL (7-18); Calcium 8.6 MG/DL (8.5-10.1); Estimated Glom Filtration Rate 11 ML/MIN; Glucose 68 MG/DL (74-106); Osmolality,Calculated 278.8 MOS/KG (273-304); Total Protein 6.5 G/DL (6.4-8.3)
[2018-11-30 06:09] LABS: Folate 8.4 NG/ML (5.4-24.0)
[2018-11-30] MEDS: CHOLECALCIFEROL 1,000 UNIT TABLET PO SCH (09:39)
[2018-11-30] MEDS: ROSUVASTATIN 20 MG TABLET PO SCH (09:40)
[2018-11-30] MEDS: FLUoxetine 20 MG CAPSULE PO SCH (09:40)
[2018-11-30] MEDS: PANTOPRAZOLE 40 MG VIAL IV SCH (09:41)
[2018-11-30] MEDS: GABAPENTIN 400 MG CAPSULE PO SCH ×3 (09:41→21:27)
[2018-11-30] MEDS: MULTIVITAMIN (PRENATAL) TABLET PO SCH (09:41)
[2018-11-30] MEDS: METOPROLOL SUCCINATE XL 50 MG TABLET PO SCH (09:41)
[2018-11-30] MEDS: amLODIPine 5 MG TABLET PO SCH (09:41)
[2018-11-30] MEDS ORDERED: SODIUM CHLORIDE 0.9% 500 ML IV ONE (11:24)
[2018-11-30 12:29] LABS: PT Patient Result 62.2 SECS (9.6-12.2)
[2018-11-30 12:31] LABS: INR 5.8
[2018-11-30 13:31] LABS: INR 6.3
[2018-11-30] MEDS ORDERED: SODIUM CHLORIDE 0.9% 1,000 ML IV PRN (15:10)
[2018-11-30] MEDS: SEVELAMER CARBONATE 800 MG TABLET PO SCH (17:36)
[2018-11-30] MEDS ORDERED: PHYTONADIONE 10 MG/1 ML AMP SUBCUT ONE (20:30)
[2018-12-01 05:36] LABS: Basophils % 0.7 % (0.0-0.8); Eosinophils # 0.2 10*3/uL (0.0-0.87); Eosinophils % 2.7 % (0.00-10.9); Hematocrit 19.9 VOL% (35.7-47.0); Immature Granulocytes % 0.5 %; Immature Granulocytes Absolute 0.03 #; Lymphocytes # 1.8 10*3/uL (1.4-4.0); Lymphocytes % 30.3 % (21.3-54.2); Mean Corpuscular HGB Conc 31.2 GM/DL (32-36); Mean Platelet Volume 10.4 FL (9.6-12.0); Monocytes % 7.1 % (1.7-12.7); Neutrophils % 58.7 % (38.7-73.9); Platelet Count 132 T/CUMM (130-400); Red Blood Count 2.21 MC/CUMM (3.8-5.5)
[2018-12-01 05:40] LABS: INR 3.3
[2018-12-01 05:43] LABS: Hemoglobin 6.2 GM/DL (12.0-16.0)
[2018-12-01 05:50] LABS: PT Patient Result 35.5 SECS (9.6-12.2)
[2018-12-01 05:52] LABS: Calcium 8.9 MG/DL (8.5-10.1); Osmolality,Calculated 301.1 MOS/KG (273-304)
[2018-12-01 05:57] LABS: Albumin 2.4 G/DL (3.4-5.0); Bilirubin,Total 0.6 MG/DL (0.2-1.0); Osmolality,Calculated 299.3 MOS/KG (273-304); Total Protein 5.9 G/DL (6.4-8.3)
[2018-12-01] MEDS: ROSUVASTATIN 20 MG TABLET PO SCH (08:42)
[2018-12-01] MEDS: MULTIVITAMIN (PRENATAL) TABLET PO SCH (08:42)
[2018-12-01] MEDS: FLUoxetine 20 MG CAPSULE PO SCH (08:42)
[2018-12-01] MEDS: GABAPENTIN 400 MG CAPSULE PO SCH ×3 (08:42→21:57)
[2018-12-01] MEDS: CHOLECALCIFEROL 1,000 UNIT TABLET PO SCH (08:42)
[2018-12-01] MEDS: PANTOPRAZOLE 40 MG VIAL IV SCH (08:43)
[2018-12-01] MEDS ORDERED: SODIUM CHLORIDE 0.9% 1,000 ML IV PRN ×3 (10:23→16:00)
[2018-12-01] MEDS ORDERED: PHYTONADIONE 10 MG/1 ML AMP SUBCUT ONE (16:55)
[2018-12-01] MEDS: SEVELAMER CARBONATE 800 MG TABLET PO SCH (17:36)
[2018-12-02 06:06] LABS: Basophils % 0.5 % (0.0-0.8); Eosinophils # 0.2 10*3/uL (0.0-0.87); Eosinophils % 2.4 % (0.00-10.9); Hematocrit 23.5 VOL% (35.7-47.0); Hemoglobin 7.6 GM/DL (12.0-16.0); Immature Granulocytes % 0.5 %; Immature Granulocytes Absolute 0.04 #; Lymphocytes # 2.5 10*3/uL (1.4-4.0); Lymphocytes % 27.9 % (21.3-54.2); Mean Corpuscular HGB Conc 32.3 GM/DL (32-36); Monocytes % 6.6 % (1.7-12.7); Neutrophils % 62.1 % (38.7-73.9); Platelet Count 144 T/CUMM (130-400); Red Blood Count 2.61 MC/CUMM (3.8-5.5); Red Cell Distribution Width 19.2 % (9.3-17.3); White Blood Count 8.8 T/CUMM (4-12)
[2018-12-02 06:21] LABS: INR 1.8; PT Patient Result 19.3 SECS (9.6-12.2)
[2018-12-02 06:28] LABS: Albumin 2.6 G/DL (3.4-5.0); Bilirubin,Total 0.9 MG/DL (0.2-1.0); Calcium 9.1 MG/DL (8.5-10.1); Osmolality,Calculated 304.7 MOS/KG (273-304); Total Protein 6.4 G/DL (6.4-8.3)
[2018-12-02 06:33] LABS: Calcium 9.5 MG/DL (8.5-10.1); Osmolality,Calculated 309.4 MOS/KG (273-304)
[2018-12-02 07:44] LABS: Hypochromasia Slight
[2018-12-02 07:45] LABS: Microcytosis 1+; Ovalocytes Slight; Platelet Estimate Adequate; Polychromasia Slight
[2018-12-02 11:05] LABS: Hepatitis B Core IgM Quant 0.09 Index; Hepatitis B Surface Ag Quant < 0.10 Index; Hepatitis B Surface Ag Result Negative (Negative); Hepatitis C Virus Ab Quant 0.03 Index; Hepatitis C Virus Ab Result Negative (Negative)
[2018-12-02] MEDS: FLUoxetine 20 MG CAPSULE PO SCH (13:15)
[2018-12-02] MEDS: ROSUVASTATIN 20 MG TABLET PO SCH (13:15)
[2018-12-02] MEDS: CHOLECALCIFEROL 1,000 UNIT TABLET PO SCH (13:16)
[2018-12-02] MEDS: GABAPENTIN 400 MG CAPSULE PO SCH ×3 (13:16→21:01)
[2018-12-02] MEDS: PANTOPRAZOLE 40 MG VIAL IV SCH (13:16)
[2018-12-02] MEDS: MULTIVITAMIN (PRENATAL) TABLET PO SCH (13:16)
[2018-12-02] MEDS: SEVELAMER CARBONATE 800 MG TABLET PO SCH (16:49)
[2018-12-02] MEDS: METOPROLOL SUCCINATE XL 50 MG TABLET PO SCH (21:01)
[2018-12-03] MEDS ORDERED: LIDOCAINE 100 MG/5 ML SYRINGE ONE ×2 (09:00)
[2018-12-03] MEDS ORDERED: PROPOFOL 200 MG/20 ML VIAL IV ONE ×2 (09:00)
[2018-12-03] MEDS ORDERED: ETOMIDATE 20 MG/10 ML VIAL IV ONE ×2 (09:00)
[2018-12-03 09:01] LABS: Basophils % 0.4 % (0.0-0.8); Eosinophils # 0.1 10*3/uL (0.0-0.87); Eosinophils % 1.7 % (0.00-10.9); Hematocrit 28.7 VOL% (35.7-47.0); Immature Granulocytes % 0.4 %; Immature Granulocytes Absolute 0.03 #; Lymphocytes # 1.2 10*3/uL (1.4-4.0); Lymphocytes % 16.6 % (21.3-54.2); Mean Corpuscular HGB Conc 32.8 GM/DL (32-36); Mean Corpuscular Volume 89.1 FL (87-102); Mean Platelet Volume 11.3 FL (9.6-12.0); Monocytes % 7.5 % (1.7-12.7); Neutrophils % 73.4 % (38.7-73.9); Platelet Count 126 T/CUMM (130-400); Red Cell Distribution Width 17.9 % (9.3-17.3); White Blood Count 7.1 T/CUMM (4-12)
[2018-12-03 09:09] LABS: INR 1.2
[2018-12-03 09:11] LABS: Hemoglobin 9.4 GM/DL (12.0-16.0); Red Blood Count 3.22 MC/CUMM (3.8-5.5)
[2018-12-03 09:18] LABS: Albumin 2.7 G/DL (3.4-5.0); Bilirubin,Total 0.4 MG/DL (0.2-1.0); Calcium 9.1 MG/DL (8.5-10.1); Osmolality,Calculated 289.7 MOS/KG (273-304); Total Protein 6.8 G/DL (6.4-8.3)
[2018-12-03] MEDS: SODIUM CHLORIDE 0.9% 500 ML IV SCH (09:55)
[2018-12-03] MEDS ORDERED: BISACODYL 5 MG TABLET PO ONE (12:00)
[2018-12-03] MEDS: PANTOPRAZOLE 40 MG VIAL IV SCH (13:07)
[2018-12-03] MEDS: CHOLECALCIFEROL 1,000 UNIT TABLET PO SCH (13:08)
[2018-12-03] MEDS: ROSUVASTATIN 20 MG TABLET PO SCH (13:08)
[2018-12-03] MEDS: GABAPENTIN 400 MG CAPSULE PO SCH ×3 (13:08→21:52)
[2018-12-03] MEDS: amLODIPine 5 MG TABLET PO SCH (13:09)
[2018-12-03] MEDS: MULTIVITAMIN (PRENATAL) TABLET PO SCH (13:09)
[2018-12-03] MEDS: METOPROLOL SUCCINATE XL 50 MG TABLET PO SCH ×2 (13:09→21:52)
[2018-12-03] MEDS: FLUoxetine 20 MG CAPSULE PO SCH (13:09)
[2018-12-03] MEDS: SEVELAMER CARBONATE 800 MG TABLET PO SCH (16:05)
[2018-12-03] MEDS ORDERED: POLYETHYLENE GLYCOL POWDER 255 GM BOTTLE PO ONE (18:00)
[2018-12-04 04:49] LABS: INR 1.1; PT Patient Result 12.2 SECS (9.6-12.2)
[2018-12-04 07:38] LABS: Calcium 8.9 MG/DL (8.5-10.1)
[2018-12-04] MEDS ORDERED: ETOMIDATE 20 MG/10 ML VIAL IV ONE (09:00)
[2018-12-04] MEDS ORDERED: LIDOCAINE 2% 5 ML VIAL ONE (09:00)
[2018-12-04] MEDS ORDERED: PROPOFOL 200 MG/20 ML VIAL IV ONE (09:00)
[2018-12-04] MEDS: amLODIPine 5 MG TABLET PO SCH (13:46)
[2018-12-04] MEDS: FLUoxetine 20 MG CAPSULE PO SCH (13:46)
[2018-12-04] MEDS: GABAPENTIN 400 MG CAPSULE PO SCH ×3 (13:46→21:34)
[2018-12-04] MEDS: ROSUVASTATIN 20 MG TABLET PO SCH (13:47)
[2018-12-04] MEDS: METOPROLOL SUCCINATE XL 50 MG TABLET PO SCH ×2 (13:47→21:35)
[2018-12-04] MEDS: MULTIVITAMIN (PRENATAL) TABLET PO SCH (13:47)
[2018-12-04] MEDS: CHOLECALCIFEROL 1,000 UNIT TABLET PO SCH (13:47)
[2018-12-04] MEDS: PANTOPRAZOLE 40 MG VIAL IV SCH (13:48)
[2018-12-04] MEDS: SODIUM CHLORIDE 0.9% 500 ML IV SCH (13:54)
[2018-12-04] MEDS: SEVELAMER CARBONATE 800 MG TABLET PO SCH (18:29)
[2018-12-05 07:19] LABS: Basophils % 0.4 % (0.0-0.8); Eosinophils # 0.1 10*3/uL (0.0-0.87); Hematocrit 27.6 VOL% (35.7-47.0); Immature Granulocytes % 0.4 %; Immature Granulocytes Absolute 0.03 #; Lymphocytes # 1.7 10*3/uL (1.4-4.0); Lymphocytes % 24.4 % (21.3-54.2); Mean Corpuscular HGB Conc 32.6 GM/DL (32-36); Mean Corpuscular Volume 89.6 FL (87-102); Mean Platelet Volume 10.3 FL (9.6-12.0); Monocytes % 8.9 % (1.7-12.7); Neutrophils % 63.9 % (38.7-73.9); Platelet Count 114 T/CUMM (130-400); Red Blood Count 3.08 MC/CUMM (3.8-5.5); Red Cell Distribution Width 17.1 % (9.3-17.3)
[2018-12-05 07:25] LABS: PT Patient Result 11.1 SECS (9.6-12.2)
[2018-12-05 07:55] LABS: Calcium 8.8 MG/DL (8.5-10.1); Osmolality,Calculated 277.8 MOS/KG (273-304)
[2018-12-05] MEDS: amLODIPine 5 MG TABLET PO SCH (08:46)
[2018-12-05] MEDS: ROSUVASTATIN 20 MG TABLET PO SCH (08:46)
[2018-12-05] MEDS: MULTIVITAMIN (PRENATAL) TABLET PO SCH (08:46)
[2018-12-05] MEDS: FLUoxetine 20 MG CAPSULE PO SCH (08:46)
[2018-12-05] MEDS: METOPROLOL SUCCINATE XL 50 MG TABLET PO SCH (08:46)
[2018-12-05] MEDS: CHOLECALCIFEROL 1,000 UNIT TABLET PO SCH (08:46)
[2018-12-05] MEDS: GABAPENTIN 400 MG CAPSULE PO SCH (08:46)
[2018-12-05] MEDS: PANTOPRAZOLE 40 MG VIAL IV SCH (08:47)
[2018-12-05 11:35] VITALS: BP 129/56
== END 2018-12-05 14:01 | disposition home health service (06) | DRG 813 ==
LOC: N.ED 15:30 → N.EDINP 19:09 → N.5E 19:35
PROVIDERS: ADMIT Internal Medicine; ATTEND Internal Medicine

== ENCOUNTER 2018-12-08 09:48 | Inpatient (IN) ==
[2018-12-08] MEDS ORDERED: PANTOPRAZOLE 40 MG VIAL IV STA (10:24)
[2018-12-08] MEDS ORDERED: METOCLOPRAMIDE 10 MG/2 ML VIAL IV STA (10:24)
[2018-12-08] MEDS ORDERED: ONDANSETRON 4 MG/2 ML VIAL IV STA (10:24)
[2018-12-08] MEDS ORDERED: DICYCLOMINE 20 MG/2 ML AMP IM ONE (10:24)
[2018-12-08] MEDS ORDERED: SODIUM CHLORIDE 0.9% 1,000 ML IV STA (10:24)
[2018-12-08 10:47] LABS: Basophils % 0.1 % (0.0-0.8); Eosinophils % 0.3 % (0.00-10.9); Hemoglobin 12.7 GM/DL (12.0-16.0); Immature Granulocytes % 0.4 %; Immature Granulocytes Absolute 0.05 #; Lymphocytes # 0.3 10*3/uL (1.4-4.0); Lymphocytes % 2.3 % (21.3-54.2); Mean Corpuscular HGB Conc 32.6 GM/DL (32-36); Mean Corpuscular Volume 90.1 FL (87-102); Mean Platelet Volume 10.1 FL (9.6-12.0); Monocytes % 2.1 % (1.7-12.7); Neutrophils % 94.8 % (38.7-73.9); Platelet Count 134 T/CUMM (130-400); Red Blood Count 4.33 MC/CUMM (3.8-5.5); Red Cell Distribution Width 17.7 % (9.3-17.3)
[2018-12-08] MEDS ORDERED: SODIUM CHLORIDE 0.9% 250 ML IV STA (10:55)
[2018-12-08 11:07] LABS: Albumin 3.3 G/DL (3.4-5.0); Bilirubin,Total 0.6 MG/DL (0.2-1.0); Calcium 10.5 MG/DL (8.5-10.1); Osmolality,Calculated 291.3 MOS/KG (273-304); Total Protein 8.2 G/DL (6.4-8.3)
[2018-12-08 11:19] LABS: Lymphocytes 1 % (20-55); Platelet Estimate Normal; Polychromasia Slight; Segmented Neutrophils 95 % (50-85); Total Cells Counted 100
[2018-12-08] MEDS ORDERED: ONDANSETRON 4 MG/2 ML VIAL IV PRN (12:39)
[2018-12-08] MEDS ORDERED: ACETAMINOPHEN 325 MG TABLET PO PRN (12:39)
[2018-12-08] MEDS: SODIUM CHLORIDE 0.9% 1,000 ML IV SCH (13:50)
[2018-12-08 14:59] LABS: PT Patient Result 10.8 SECS (9.6-12.2)
[2018-12-08 15:01] LABS: Partial Thromboplastin Time < 21.0 SECS (20.8-36.0)
[2018-12-08] MEDS: SEVELAMER CARBONATE 800 MG TABLET PO SCH (17:56)
[2018-12-08] MEDS: PANTOPRAZOLE 40 MG VIAL IV SCH (20:48)
[2018-12-08] MEDS: METOPROLOL SUCCINATE XL 50 MG TABLET PO SCH (20:49)
[2018-12-08] MEDS: ASPIRIN EC 81 MG TABLET PO SCH (20:49)
[2018-12-09 04:36] LABS: Basophils % 0.1 % (0.0-0.8); Eosinophils # 0.2 10*3/uL (0.0-0.87); Hematocrit 27.4 VOL% (35.7-47.0); Hemoglobin 8.6 GM/DL (12.0-16.0); Immature Granulocytes % 0.4 %; Immature Granulocytes Absolute 0.03 #; Lymphocytes % 12.5 % (21.3-54.2); Mean Corpuscular HGB Conc 31.4 GM/DL (32-36); Mean Corpuscular Volume 92.3 FL (87-102); Monocytes % 6.2 % (1.7-12.7); Neutrophils % 78.8 % (38.7-73.9); Platelet Count 129 T/CUMM (130-400); Red Blood Count 2.97 MC/CUMM (3.8-5.5); Red Cell Distribution Width 17.9 % (9.3-17.3); White Blood Count 8.1 T/CUMM (4-12)
[2018-12-09 04:43] LABS: PT Patient Result 11.2 SECS (9.6-12.2); Partial Thromboplastin Time 25.9 SECS (20.8-36.0)
[2018-12-09 05:01] LABS: Calcium 8.7 MG/DL (8.5-10.1); Osmolality,Calculated 290.3 MOS/KG (273-304)
[2018-12-09 05:05] LABS: Hypochromasia 1+; Platelet Estimate Normal
[2018-12-09] MEDS: SODIUM CHLORIDE 0.9% 1,000 ML IV SCH ×2 (06:06→17:36)
[2018-12-09 14:20] LABS: Hepatitis B Core IgM Quant 0.09 Index; Hepatitis B Surface Ag Quant 0.12 Index; Hepatitis B Surface Ag Result Negative (Negative); Hepatitis C Virus Ab Quant 0.04 Index; Hepatitis C Virus Ab Result Negative (Negative)
[2018-12-09] MEDS: ROSUVASTATIN 20 MG TABLET PO SCH (14:42)
[2018-12-09] MEDS: DONEPEZIL 10 MG TABLET PO SCH (14:42)
[2018-12-09] MEDS: FLUoxetine 20 MG CAPSULE PO SCH (14:42)
[2018-12-09] MEDS: MULTIVITAMIN (CENTRUM) TABLET PO SCH (14:43)
[2018-12-09] MEDS: amLODIPine 5 MG TABLET PO SCH (14:43)
[2018-12-09] MEDS: CHOLECALCIFEROL 1,000 UNIT TABLET PO SCH (14:43)
[2018-12-09] MEDS: METOPROLOL SUCCINATE XL 50 MG TABLET PO SCH ×2 (14:43→21:05)
[2018-12-09] MEDS: PANTOPRAZOLE 40 MG VIAL IV SCH ×2 (14:44→21:05)
[2018-12-09] MEDS: SEVELAMER CARBONATE 800 MG TABLET PO SCH (17:35)
[2018-12-09] MEDS: WARFARIN 3 MG TABLET PO SCH (17:38)
[2018-12-09] MEDS: ASPIRIN EC 81 MG TABLET PO SCH (21:05)
[2018-12-10 04:58] LABS: PT Patient Result 11.1 SECS (9.6-12.2); Partial Thromboplastin Time 25.2 SECS (20.8-36.0)
[2018-12-10] MEDS: SODIUM CHLORIDE 0.9% 1,000 ML IV SCH (06:25)
[2018-12-10] MEDS: DONEPEZIL 10 MG TABLET PO SCH (08:19)
[2018-12-10] MEDS: ROSUVASTATIN 20 MG TABLET PO SCH (08:19)
[2018-12-10] MEDS: MULTIVITAMIN (CENTRUM) TABLET PO SCH (08:20)
[2018-12-10] MEDS: METOPROLOL SUCCINATE XL 50 MG TABLET PO SCH ×2 (08:20→21:31)
[2018-12-10] MEDS: FLUoxetine 20 MG CAPSULE PO SCH (08:20)
[2018-12-10] MEDS: amLODIPine 5 MG TABLET PO SCH (08:20)
[2018-12-10] MEDS: CHOLECALCIFEROL 1,000 UNIT TABLET PO SCH (08:20)
[2018-12-10] MEDS: PANTOPRAZOLE 40 MG VIAL IV SCH (08:21)
[2018-12-10] MEDS: HEPARIN 5,000 UNIT/1 ML VIAL SUBCUT SCH ×2 (09:10→21:36)
[2018-12-10] MEDS: VANCOMYCIN 50 MG/ML 60 ML/BOTTLE PO SCH ×3 (13:26→23:58)
[2018-12-10] MEDS: SEVELAMER CARBONATE 800 MG TABLET PO SCH (17:08)
[2018-12-10] MEDS: WARFARIN 3 MG TABLET PO SCH (17:08)
[2018-12-10] MEDS: ASPIRIN EC 81 MG TABLET PO SCH (21:31)
[2018-12-10] MEDS: PANTOPRAZOLE 40 MG TABLET PO SCH (21:31)
[2018-12-11 05:24] LABS: Partial Thromboplastin Time 26.5 SECS (20.8-36.0)
[2018-12-11] MEDS: VANCOMYCIN 50 MG/ML 60 ML/BOTTLE PO SCH ×2 (05:44→14:20)
[2018-12-11] MEDS: DONEPEZIL 10 MG TABLET PO SCH (08:09)
[2018-12-11] MEDS: MULTIVITAMIN (CENTRUM) TABLET PO SCH (08:09)
[2018-12-11] MEDS: PANTOPRAZOLE 40 MG TABLET PO SCH (08:09)
[2018-12-11] MEDS: amLODIPine 5 MG TABLET PO SCH (08:09)
[2018-12-11] MEDS: ROSUVASTATIN 20 MG TABLET PO SCH (08:09)
[2018-12-11] MEDS: FLUoxetine 20 MG CAPSULE PO SCH (08:09)
[2018-12-11] MEDS: CHOLECALCIFEROL 1,000 UNIT TABLET PO SCH (08:09)
[2018-12-11] MEDS: METOPROLOL SUCCINATE XL 50 MG TABLET PO SCH (08:09)
[2018-12-11] MEDS: HEPARIN 5,000 UNIT/1 ML VIAL SUBCUT SCH (08:12)
[2018-12-11] MEDS ORDERED: LIDOCAINE/PRILOCAINE CREAM 5 GM TUBE TOP ONE (08:37)
[2018-12-11 14:14] VITALS: BP 130/65
== END 2018-12-11 14:51 | disposition home health service (06) | DRG 371 ==
LOC: N.ED 09:48 → N.EDINP 12:39 → N.5E 13:19

== ENCOUNTER 2018-12-17 07:54 | Inpatient (IN) ==
[2018-12-17] MEDS ORDERED: SODIUM CHLORIDE 0.9% 1,000 ML IV STA (08:18)
[2018-12-17] MEDS ORDERED: KETOROLAC 30 MG/1 ML VIAL IV STA (08:18)
[2018-12-17 09:00] LABS: Basophils % 0.3 % (0.0-0.8); Eosinophils % 0.1 % (0.00-10.9); Hematocrit 29.4 VOL% (35.7-47.0); Hemoglobin 9.5 GM/DL (12.0-16.0); Immature Granulocytes % 0.7 %; Immature Granulocytes Absolute 0.08 #; Lymphocytes # 1.5 10*3/uL (1.4-4.0); Lymphocytes % 12.5 % (21.3-54.2); Mean Corpuscular HGB Conc 32.3 GM/DL (32-36); Mean Corpuscular Volume 89.6 FL (87-102); Monocytes % 7.9 % (1.7-12.7); Neutrophils % 78.5 % (38.7-73.9); Platelet Count 149 T/CUMM (130-400); Red Blood Count 3.28 MC/CUMM (3.8-5.5); Red Cell Distribution Width 16.3 % (9.3-17.3); White Blood Count 11.8 T/CUMM (4-12)
[2018-12-17 09:08] LABS: INR 1.6; PT Patient Result 17.3 SECS (9.6-12.2); Partial Thromboplastin Time 25.9 SECS (20.8-36.0)
[2018-12-17 09:22] LABS: Albumin 2.9 G/DL (3.4-5.0); Bilirubin,Total 0.6 MG/DL (0.2-1.0); Calcium 8.7 MG/DL (8.5-10.1); Osmolality,Calculated 270.1 MOS/KG (273-304)
[2018-12-17] MEDS ORDERED: HEPARIN 5,000 UNIT/1 ML VIAL IV STA (13:47)
[2018-12-17] MEDS ORDERED: ONDANSETRON 4 MG/2 ML VIAL IV PRN (14:50)
[2018-12-17] MEDS ORDERED: ACETAMINOPHEN 325 MG TABLET PO PRN (14:50)
[2018-12-17] MEDS ORDERED: HEPARIN 5,000 UNIT/1 ML VIAL SUBCUT ONE (17:24)
[2018-12-17] MEDS ORDERED: WARFARIN 2 MG TABLET PO SCH (18:00)
[2018-12-17] MEDS ORDERED: WARFARIN 2.5 MG TABLET PO SCH (18:00)
[2018-12-17] MEDS: METOPROLOL SUCCINATE XL 50 MG TABLET PO SCH (21:23)
[2018-12-17] MEDS: GABAPENTIN 400 MG CAPSULE PO SCH (21:23)
[2018-12-17] MEDS: PANTOPRAZOLE 40 MG TABLET PO SCH (21:23)
[2018-12-17] MEDS: ASPIRIN EC 81 MG TABLET PO SCH (21:24)
[2018-12-17] MEDS: VANCOMYCIN 50 MG/ML 60 ML/BOTTLE PO SCH (21:25)
[2018-12-18 05:14] LABS: Basophils % 0.3 % (0.0-0.8); Eosinophils # 0.1 10*3/uL (0.0-0.87); Eosinophils % 1.1 % (0.00-10.9); Hematocrit 26.1 VOL% (35.7-47.0); Hemoglobin 8.2 GM/DL (12.0-16.0); Immature Granulocytes % 0.7 %; Immature Granulocytes Absolute 0.07 #; Lymphocytes # 1.9 10*3/uL (1.4-4.0); Lymphocytes % 17.8 % (21.3-54.2); Mean Corpuscular HGB Conc 31.4 GM/DL (32-36); Mean Corpuscular Volume 91.9 FL (87-102); Mean Platelet Volume 10.4 FL (9.6-12.0); Neutrophils % 73.1 % (38.7-73.9); Platelet Count 155 T/CUMM (130-400); Red Blood Count 2.84 MC/CUMM (3.8-5.5); Red Cell Distribution Width 16.4 % (9.3-17.3); White Blood Count 10.7 T/CUMM (4-12)
[2018-12-18 05:20] LABS: INR 1.4; PT Patient Result 15.5 SECS (9.6-12.2)
[2018-12-18 05:36] LABS: Calcium 8.4 MG/DL (8.5-10.1); Osmolality,Calculated 280.7 MOS/KG (273-304)
[2018-12-18] MEDS: METOPROLOL SUCCINATE XL 50 MG TABLET PO SCH ×2 (08:20→21:42)
[2018-12-18] MEDS: ROSUVASTATIN 20 MG TABLET PO SCH (08:20)
[2018-12-18] MEDS: DONEPEZIL 10 MG TABLET PO SCH (08:20)
[2018-12-18] MEDS: amLODIPine 5 MG TABLET PO SCH (08:20)
[2018-12-18] MEDS: FLUoxetine 20 MG CAPSULE PO SCH (08:21)
[2018-12-18] MEDS: CHOLECALCIFEROL 1,000 UNIT TABLET PO SCH (08:21)
[2018-12-18] MEDS: PANTOPRAZOLE 40 MG TABLET PO SCH ×2 (08:21→21:42)
[2018-12-18] MEDS: MULTIVITAMIN (PRENATAL) TABLET PO SCH (08:21)
[2018-12-18] MEDS: GABAPENTIN 400 MG CAPSULE PO SCH ×3 (08:22→21:42)
[2018-12-18] MEDS: VANCOMYCIN 50 MG/ML 60 ML/BOTTLE PO SCH ×4 (08:27→21:42)
[2018-12-18] MEDS ORDERED: PANTOPRAZOLE 40 MG TABLET PO SCH (09:00)
[2018-12-18] MEDS: HEPARIN 5,000 UNIT/1 ML VIAL SUBCUT SCH (13:59)
[2018-12-18] MEDS: SEVELAMER CARBONATE 800 MG TABLET PO SCH (16:05)
[2018-12-18] MEDS: WARFARIN 3 MG TABLET PO SCH (17:32)
[2018-12-18] MEDS ORDERED: WARFARIN 2 MG TABLET PO SCH (18:00)
[2018-12-18] MEDS ORDERED: WARFARIN 2.5 MG TABLET PO SCH (18:00)
[2018-12-18] MEDS: ASPIRIN EC 81 MG TABLET PO SCH (21:42)
[2018-12-19] MEDS: HEPARIN 5,000 UNIT/1 ML VIAL SUBCUT SCH ×2 (00:43→11:31)
[2018-12-19 04:34] LABS: Basophils % 0.4 % (0.0-0.8); Eosinophils # 0.2 10*3/uL (0.0-0.87); Eosinophils % 1.6 % (0.00-10.9); Hematocrit 26.8 VOL% (35.7-47.0); Hemoglobin 8.3 GM/DL (12.0-16.0); Immature Granulocytes % 0.4 %; Immature Granulocytes Absolute 0.04 #; Lymphocytes # 1.8 10*3/uL (1.4-4.0); Lymphocytes % 18.1 % (21.3-54.2); Mean Corpuscular Volume 91.8 FL (87-102); Mean Platelet Volume 10.7 FL (9.6-12.0); Monocytes % 8.4 % (1.7-12.7); Neutrophils % 71.1 % (38.7-73.9); Platelet Count 186 T/CUMM (130-400); Red Blood Count 2.92 MC/CUMM (3.8-5.5); Red Cell Distribution Width 16.2 % (9.3-17.3); White Blood Count 10.1 T/CUMM (4-12)
[2018-12-19 04:42] LABS: INR 1.6; PT Patient Result 16.9 SECS (9.6-12.2)
[2018-12-19 04:51] LABS: Calcium 8.4 MG/DL (8.5-10.1); Osmolality,Calculated 277.7 MOS/KG (273-304)
[2018-12-19] MEDS: GABAPENTIN 400 MG CAPSULE PO SCH ×3 (08:31→21:57)
[2018-12-19] MEDS: FLUoxetine 20 MG CAPSULE PO SCH (08:31)
[2018-12-19] MEDS: amLODIPine 5 MG TABLET PO SCH (08:31)
[2018-12-19] MEDS: CHOLECALCIFEROL 1,000 UNIT TABLET PO SCH (08:31)
[2018-12-19] MEDS: ROSUVASTATIN 20 MG TABLET PO SCH (08:32)
[2018-12-19] MEDS: MULTIVITAMIN (PRENATAL) TABLET PO SCH (08:32)
[2018-12-19] MEDS: PANTOPRAZOLE 40 MG TABLET PO SCH ×2 (08:32→21:57)
[2018-12-19] MEDS: METOPROLOL SUCCINATE XL 50 MG TABLET PO SCH ×2 (08:32→21:57)
[2018-12-19] MEDS: DONEPEZIL 10 MG TABLET PO SCH (08:32)
[2018-12-19] MEDS: VANCOMYCIN 50 MG/ML 60 ML/BOTTLE PO SCH ×4 (08:32→21:56)
[2018-12-19] MEDS ORDERED: WARFARIN 2.5 MG TABLET PO ONE (10:41)
[2018-12-19] MEDS: SEVELAMER CARBONATE 800 MG TABLET PO SCH (16:37)
[2018-12-19] MEDS: WARFARIN 3 MG TABLET PO SCH (18:01)
[2018-12-19] MEDS: ASPIRIN EC 81 MG TABLET PO SCH (21:57)
[2018-12-20] MEDS: HEPARIN 5,000 UNIT/1 ML VIAL SUBCUT SCH (00:37)
[2018-12-20 05:12] LABS: Basophils % 0.3 % (0.0-0.8); Eosinophils # 0.1 10*3/uL (0.0-0.87); Eosinophils % 1.3 % (0.00-10.9); Hematocrit 25.7 VOL% (35.7-47.0); Hemoglobin 8.1 GM/DL (12.0-16.0); Immature Granulocytes % 0.5 %; Immature Granulocytes Absolute 0.05 #; Lymphocytes # 1.7 10*3/uL (1.4-4.0); Mean Corpuscular HGB Conc 31.5 GM/DL (32-36); Mean Corpuscular Volume 90.8 FL (87-102); Mean Platelet Volume 10.6 FL (9.6-12.0); Monocytes % 8.9 % (1.7-12.7); Platelet Count 200 T/CUMM (130-400); Red Blood Count 2.83 MC/CUMM (3.8-5.5); Red Cell Distribution Width 16.2 % (9.3-17.3); White Blood Count 9.4 T/CUMM (4-12)
[2018-12-20 05:24] LABS: INR 2.2
[2018-12-20 05:34] LABS: PT Patient Result 23.7 SECS (9.6-12.2)
[2018-12-20] MEDS: MULTIVITAMIN (PRENATAL) TABLET PO SCH (08:31)
[2018-12-20] MEDS: PANTOPRAZOLE 40 MG TABLET PO SCH (08:31)
[2018-12-20] MEDS: DONEPEZIL 10 MG TABLET PO SCH (08:31)
[2018-12-20] MEDS: ROSUVASTATIN 20 MG TABLET PO SCH (08:31)
[2018-12-20] MEDS: CHOLECALCIFEROL 1,000 UNIT TABLET PO SCH (08:31)
[2018-12-20] MEDS: METOPROLOL SUCCINATE XL 50 MG TABLET PO SCH (08:31)
[2018-12-20] MEDS: FLUoxetine 20 MG CAPSULE PO SCH (08:31)
[2018-12-20] MEDS: amLODIPine 5 MG TABLET PO SCH (08:32)
[2018-12-20] MEDS: GABAPENTIN 400 MG CAPSULE PO SCH (08:32)
[2018-12-20] MEDS: VANCOMYCIN 50 MG/ML 60 ML/BOTTLE PO SCH ×2 (08:33→13:06)
[2018-12-20 13:12] VITALS: BP 145/70
[2018-12-20] MEDS ORDERED: WARFARIN 3 MG TABLET PO SCH (18:00)
[2018-12-21] MEDS ORDERED: WARFARIN 3 MG TABLET PO SCH (18:00)
== END 2018-12-20 15:14 | disposition home health service (06) | DRG 313 ==
LOC: N.EDINP 07:54 → N.ED 07:54 → N.5E 15:35 → SUATTDRO 12-18 09:39
PROVIDERS: ADMIT Family Medicine; ATTEND Internal Medicine

== ENCOUNTER 2019-01-02 13:04 | Observation (INO) ==
[2019-01-02] MEDS ORDERED: SODIUM CHLORIDE 0.9% 1,000 ML IV STA (13:32)
[2019-01-02 14:41] LABS: Basophils % 0.4 % (0.0-0.8); Eosinophils # 0.1 10*3/uL (0.0-0.87); Eosinophils % 1.4 % (0.00-10.9); Hematocrit 28.4 VOL% (35.7-47.0); Hemoglobin 8.7 GM/DL (12.0-16.0); Immature Granulocytes % 0.4 %; Immature Granulocytes Absolute 0.03 #; Lymphocytes # 1.9 10*3/uL (1.4-4.0); Mean Corpuscular HGB Conc 30.6 GM/DL (32-36); Mean Corpuscular Volume 92.8 FL (87-102); Monocytes % 9.6 % (1.7-12.7); Neutrophils % 63.2 % (38.7-73.9); Platelet Count 224 T/CUMM (130-400); Red Blood Count 3.06 MC/CUMM (3.8-5.5); Red Cell Distribution Width 16.8 % (9.3-17.3); White Blood Count 7.6 T/CUMM (4-12)
[2019-01-02 14:59] LABS: INR 2.4
[2019-01-02 15:01] LABS: PT Patient Result 25.8 SECS (9.6-12.2)
[2019-01-02 15:02] LABS: Alanine Aminotransferase 15 U/L (13-56); Albumin 2.7 G/DL (3.4-5.0); Alkaline Phosphatase 72 U/L (45-117); Aspartate Amino Transferase 21 U/L (0-37); Bilirubin,Total < 0.39 MG/DL (0.2-1.0); Blood Urea Nitrogen 25 MG/DL (7-18); Calcium 9.5 MG/DL (8.5-10.1); Estimated Glom Filtration Rate 8 ML/MIN; Glucose 80 MG/DL (74-106); Osmolality,Calculated 281.4 MOS/KG (273-304); Total Protein 7.4 G/DL (6.4-8.3)
[2019-01-02] MEDS ORDERED: SODIUM CHLORIDE 0.9% 1,000 ML IV PRN (15:47)
[2019-01-02] MEDS ORDERED: ACETAMINOPHEN 325 MG TABLET PO PRN (15:47)
[2019-01-02] MEDS ORDERED: WARFARIN 3 MG TABLET PO SCH (20:00)
[2019-01-02] MEDS: GABAPENTIN 400 MG CAPSULE PO SCH (21:34)
[2019-01-02] MEDS: PANTOPRAZOLE 40 MG TABLET PO SCH (21:34)
[2019-01-02] MEDS: METOPROLOL SUCCINATE XL 50 MG TABLET PO SCH (21:34)
[2019-01-02] MEDS: ASPIRIN EC 81 MG TABLET PO SCH (21:35)
[2019-01-02] MEDS: DONEPEZIL 10 MG TABLET PO SCH (21:35)
[2019-01-02 21:44] LABS: Hematocrit 26.8 VOL% (35.7-47.0); Hemoglobin 8.2 GM/DL (12.0-16.0)
[2019-01-03 04:41] LABS: Hematocrit 25.6 VOL% (35.7-47.0)
[2019-01-03 06:28] LABS: Alanine Aminotransferase 14 U/L (13-56); Albumin 2.6 G/DL (3.4-5.0); Alkaline Phosphatase 65 U/L (45-117); Aspartate Amino Transferase 21 U/L (0-37); Bilirubin,Total < 0.39 MG/DL (0.2-1.0); Blood Urea Nitrogen 28 MG/DL (7-18); Calcium 8.9 MG/DL (8.5-10.1); Estimated Glom Filtration Rate 6 ML/MIN; Glucose 76 MG/DL (74-106); Osmolality,Calculated 290.8 MOS/KG (273-304); Total Protein 6.2 G/DL (6.4-8.3)
[2019-01-03 06:44] LABS: INR 2.3
[2019-01-03 06:45] LABS: PT Patient Result 24.9 SECS (9.6-12.2)
[2019-01-03] MEDS ORDERED: CHOLECALCIFEROL 1,000 UNIT TABLET PO SCH (09:00)
[2019-01-03] MEDS ORDERED: PANTOPRAZOLE 40 MG TABLET PO SCH (09:00)
[2019-01-03] MEDS: amLODIPine 5 MG TABLET PO SCH (09:46)
[2019-01-03] MEDS: ROSUVASTATIN 20 MG TABLET PO SCH (09:46)
[2019-01-03] MEDS: PANTOPRAZOLE 40 MG TABLET PO SCH ×2 (09:46→20:49)
[2019-01-03] MEDS: METOPROLOL SUCCINATE XL 50 MG TABLET PO SCH ×2 (09:47→20:49)
[2019-01-03] MEDS: MULTIVITAMIN (PRENATAL) TABLET PO SCH (09:47)
[2019-01-03] MEDS: GABAPENTIN 400 MG CAPSULE PO SCH ×2 (09:47→18:07)
[2019-01-03] MEDS: FLUoxetine 20 MG CAPSULE PO SCH (09:47)
[2019-01-03 12:48] LABS: Hematocrit 23.6 VOL% (35.7-47.0); Hemoglobin 7.3 GM/DL (12.0-16.0)
[2019-01-03] MEDS ORDERED: SODIUM CHLORIDE 0.9% 1,000 ML IV PRN (14:00)
[2019-01-03] MEDS ORDERED: WARFARIN 3 MG TABLET PO SCH (18:00)
[2019-01-03 18:11] LABS: Hematocrit 34.7 VOL% (35.7-47.0); Hemoglobin 10.9 GM/DL (12.0-16.0)
[2019-01-03] MEDS: ASPIRIN EC 81 MG TABLET PO SCH (20:50)
[2019-01-03] MEDS ORDERED: GABAPENTIN 300 MG CAPSULE PO SCH (21:00)
[2019-01-04] MEDS: DONEPEZIL 10 MG TABLET PO SCH (03:37)
[2019-01-04 07:47] VITALS: BP 138/64
[2019-01-04] MEDS: PANTOPRAZOLE 40 MG TABLET PO SCH (08:53)
[2019-01-04] MEDS: ROSUVASTATIN 20 MG TABLET PO SCH (08:53)
[2019-01-04] MEDS: MULTIVITAMIN (PRENATAL) TABLET PO SCH (08:53)
[2019-01-04] MEDS: FLUoxetine 20 MG CAPSULE PO SCH (08:53)
[2019-01-04] MEDS: METOPROLOL SUCCINATE XL 50 MG TABLET PO SCH (08:53)
[2019-01-04] MEDS: amLODIPine 5 MG TABLET PO SCH (08:53)
[2019-01-06] MEDS ORDERED: EPOETIN ALFA 10,000 UNIT/1 ML VIAL SUBCUT SCH (09:00)
== END 2019-01-04 10:39 | disposition home or self-care (01) ==
LOC: N.EDINP 13:04 → N.ED 13:04 → SUATTDRO 15:47 → N.EDINP 18:08 → N.3E 18:14
PROVIDERS: ADMIT Internal Medicine Nephrology; ATTEND Family Medicine

== ENCOUNTER 2019-01-21 15:35 | Inpatient (IN) ==
[2019-01-21 16:36] LABS: Basophils % 0.4 % (0.0-0.8); Eosinophils % 0.4 % (0.00-10.9); Hematocrit 24.9 VOL% (35.7-47.0); Immature Granulocytes % 0.7 %; Immature Granulocytes Absolute 0.06 #; Lymphocytes # 1.3 10*3/uL (1.4-4.0); Lymphocytes % 14.7 % (21.3-54.2); Mean Corpuscular HGB Conc 32.1 GM/DL (32-36); Mean Corpuscular Volume 90.5 FL (87-102); Monocytes % 7.7 % (1.7-12.7); Neutrophils % 76.1 % (38.7-73.9); Platelet Count 184 T/CUMM (130-400); Red Blood Count 2.75 MC/CUMM (3.8-5.5); Red Cell Distribution Width 15.6 % (9.3-17.3)
[2019-01-21] MEDS ORDERED: ONDANSETRON 4 MG/2 ML VIAL IV STA (16:36)
[2019-01-21] MEDS ORDERED: MORPHINE 4 MG/1 ML VIAL IV PRN (17:38)
[2019-01-21] MEDS ORDERED: ONDANSETRON 4 MG/2 ML VIAL IV PRN (17:38)
[2019-01-21 17:50] LABS: INR 4.8
[2019-01-21 17:52] LABS: PT Patient Result 51.7 SECS (9.6-12.2)
[2019-01-21 18:42] LABS: Calcium 8.5 MG/DL (8.5-10.1); Osmolality,Calculated 279.7 MOS/KG (273-304)
[2019-01-21] MEDS ORDERED: PANTOPRAZOLE 40 MG TABLET PO SCH (21:00)
[2019-01-21] MEDS: DONEPEZIL 10 MG TABLET PO SCH (21:33)
[2019-01-21] MEDS: GABAPENTIN 400 MG CAPSULE PO SCH (21:33)
[2019-01-21] MEDS: METOPROLOL SUCCINATE XL 50 MG TABLET PO SCH (21:33)
[2019-01-21 21:41] LABS: Hematocrit 21.8 VOL% (35.7-47.0)
[2019-01-21] MEDS: PANTOPRAZOLE INJ 200 MG in SODIUM CHLORIDE 0.9% 250 ML IV SCH (23:16)
[2019-01-22 02:19] LABS: Basophils % 0.3 % (0.0-0.8); Eosinophils # 0.1 10*3/uL (0.0-0.87); Eosinophils % 1.5 % (0.00-10.9); Hematocrit 20.9 VOL% (35.7-47.0); Hemoglobin 6.5 GM/DL (12.0-16.0); Immature Granulocytes % 0.3 %; Immature Granulocytes Absolute 0.02 #; Lymphocytes # 2.3 10*3/uL (1.4-4.0); Lymphocytes % 36.9 % (21.3-54.2); Mean Corpuscular HGB Conc 31.1 GM/DL (32-36); Mean Corpuscular Volume 94.1 FL (87-102); Mean Platelet Volume 10.1 FL (9.6-12.0); Platelet Count 167 T/CUMM (130-400); Red Blood Count 2.22 MC/CUMM (3.8-5.5); Red Cell Distribution Width 15.9 % (9.3-17.3); White Blood Count 6.1 T/CUMM (4-12)
[2019-01-22 02:39] LABS: Albumin 2.4 G/DL (3.4-5.0); Bilirubin,Total 0.6 MG/DL (0.2-1.0); Calcium 8.1 MG/DL (8.5-10.1); Osmolality,Calculated 287.3 MOS/KG (273-304)
[2019-01-22] MEDS ORDERED: SODIUM CHLORIDE 0.9% 1,000 ML IV PRN (07:43)
[2019-01-22 08:34] LABS: Hemoglobin 6.6 GM/DL (12.0-16.0)
[2019-01-22 10:07] LABS: Hematocrit 19.9 VOL% (35.7-47.0)
[2019-01-22 10:13] LABS: Hemoglobin 6.3 GM/DL (12.0-16.0)
[2019-01-22 10:18] LABS: INR 4.5
[2019-01-22 10:24] LABS: PT Patient Result 48.3 SECS (9.6-12.2)
[2019-01-22] MEDS: ROSUVASTATIN 20 MG TABLET PO SCH (10:58)
[2019-01-22] MEDS: MULTIVITAMIN (PRENATAL) TABLET PO SCH (10:59)
[2019-01-22] MEDS: CHOLECALCIFEROL 1,000 UNIT TABLET PO SCH (10:59)
[2019-01-22] MEDS: amLODIPine 5 MG TABLET PO SCH (10:59)
[2019-01-22] MEDS: GABAPENTIN 400 MG CAPSULE PO SCH ×3 (10:59→20:26)
[2019-01-22] MEDS: FLUoxetine 20 MG CAPSULE PO SCH (10:59)
[2019-01-22] MEDS: METOPROLOL SUCCINATE XL 50 MG TABLET PO SCH ×2 (11:00→20:26)
[2019-01-22] MEDS: NON-FORMULARY MEDICATION (Sucroferric Oxyhydroxide [Velphoro] 500 MG) PO SCH ×3 (11:01→17:54)
[2019-01-22 14:29] LABS: Alanine Aminotransferase 13 U/L (13-56); Albumin 2.6 G/DL (3.4-5.0); Alkaline Phosphatase 60 U/L (45-117); Aspartate Amino Transferase 17 U/L (0-37); Bilirubin,Indirect 0.3 MG/DL (0.0-1.0); Bilirubin,Total < 0.39 MG/DL (0.2-1.0); Total Protein 6.5 G/DL (6.4-8.3)
[2019-01-22] MEDS: DONEPEZIL 10 MG TABLET PO SCH (20:26)
[2019-01-22] MEDS: PANTOPRAZOLE INJ 200 MG in SODIUM CHLORIDE 0.9% 250 ML IV SCH (23:46)
[2019-01-23 05:04] LABS: Basophils % 0.6 % (0.0-0.8); Eosinophils # 0.2 10*3/uL (0.0-0.87); Eosinophils % 2.7 % (0.00-10.9); Hematocrit 24.6 VOL% (35.7-47.0); Immature Granulocytes % 0.6 %; Immature Granulocytes Absolute 0.04 #; Lymphocytes # 1.6 10*3/uL (1.4-4.0); Lymphocytes % 26.2 % (21.3-54.2); Mean Corpuscular HGB Conc 32.5 GM/DL (32-36); Mean Corpuscular Volume 91.1 FL (87-102); Mean Platelet Volume 9.9 FL (9.6-12.0); Neutrophils % 60.9 % (38.7-73.9); Platelet Count 145 T/CUMM (130-400); White Blood Count 6.2 T/CUMM (4-12)
[2019-01-23 05:34] LABS: Albumin 2.4 G/DL (3.4-5.0); Bilirubin,Total 0.4 MG/DL (0.2-1.0); Calcium 8.1 MG/DL (8.5-10.1); Osmolality,Calculated 283.8 MOS/KG (273-304); Total Protein 6.1 G/DL (6.4-8.3)
[2019-01-23] MEDS: NON-FORMULARY MEDICATION (Sucroferric Oxyhydroxide [Velphoro] 500 MG) PO SCH ×3 (08:39→16:28)
[2019-01-23] MEDS: MULTIVITAMIN (PRENATAL) TABLET PO SCH (08:40)
[2019-01-23] MEDS: FLUoxetine 20 MG CAPSULE PO SCH (08:41)
[2019-01-23] MEDS: amLODIPine 5 MG TABLET PO SCH (08:41)
[2019-01-23] MEDS: GABAPENTIN 400 MG CAPSULE PO SCH ×3 (08:41→20:20)
[2019-01-23] MEDS: ROSUVASTATIN 20 MG TABLET PO SCH (08:41)
[2019-01-23] MEDS: METOPROLOL SUCCINATE XL 50 MG TABLET PO SCH ×2 (08:42→20:21)
[2019-01-23 09:17] LABS: INR 4.2
[2019-01-23] MEDS ORDERED: POTASSIUM CHLORIDE 20 MEQ/15 ML UDCUP PO ONE (12:03)
[2019-01-23] MEDS ORDERED: PHYTONADIONE 10 MG/1 ML AMP SUBCUT ONE (12:28)
[2019-01-23] MEDS: DONEPEZIL 10 MG TABLET PO SCH (20:20)
[2019-01-24] MEDS: PANTOPRAZOLE INJ 200 MG in SODIUM CHLORIDE 0.9% 250 ML IV SCH (01:00)
[2019-01-24 06:07] LABS: INR 4.2
[2019-01-24 06:22] LABS: PT Patient Result 45.1 SECS (9.6-12.2)
[2019-01-24 06:28] LABS: Albumin 2.2 G/DL (3.4-5.0); Calcium 8.5 MG/DL (8.5-10.1); Osmolality,Calculated 297.8 MOS/KG (273-304); Total Protein 5.7 G/DL (6.4-8.3)
[2019-01-24 06:30] LABS: Basophils # 0.1 10*3/uL (0.0-0.2); Basophils % 0.8 % (0.0-0.8); Eosinophils # 0.2 10*3/uL (0.0-0.87); Eosinophils % 2.3 % (0.00-10.9); Hematocrit 22.6 VOL% (35.7-47.0); Hemoglobin 7.5 GM/DL (12.0-16.0); Immature Granulocytes Absolute 0.07 #; Lymphocytes # 2.1 10*3/uL (1.4-4.0); Lymphocytes % 29.4 % (21.3-54.2); Mean Corpuscular HGB Conc 33.2 GM/DL (32-36); Mean Corpuscular Volume 89.3 FL (87-102); Mean Platelet Volume 10.6 FL (9.6-12.0); Monocytes % 8.6 % (1.7-12.7); Neutrophils % 57.9 % (38.7-73.9); Platelet Count 148 T/CUMM (130-400); Red Blood Count 2.53 MC/CUMM (3.8-5.5); Red Cell Distribution Width 15.9 % (9.3-17.3); White Blood Count 7.1 T/CUMM (4-12)
[2019-01-24] MEDS ORDERED: SODIUM CHLORIDE 0.9% 1,000 ML IV PRN ×2 (07:22→11:07)
[2019-01-24] MEDS: NON-FORMULARY MEDICATION (Sucroferric Oxyhydroxide [Velphoro] 500 MG) PO SCH ×3 (10:19→18:26)
[2019-01-24] MEDS: amLODIPine 5 MG TABLET PO SCH (10:20)
[2019-01-24] MEDS: ROSUVASTATIN 20 MG TABLET PO SCH (10:20)
[2019-01-24] MEDS: FLUoxetine 20 MG CAPSULE PO SCH (10:20)
[2019-01-24] MEDS: METOPROLOL SUCCINATE XL 50 MG TABLET PO SCH ×2 (10:20→21:21)
[2019-01-24] MEDS: CHOLECALCIFEROL 1,000 UNIT TABLET PO SCH (10:21)
[2019-01-24] MEDS: GABAPENTIN 400 MG CAPSULE PO SCH ×3 (10:21→21:20)
[2019-01-24] MEDS: MULTIVITAMIN (PRENATAL) TABLET PO SCH (10:22)
[2019-01-24] MEDS ORDERED: PHYTONADIONE 10 MG/1 ML AMP SUBCUT ONE (13:00)
[2019-01-24] MEDS: DONEPEZIL 10 MG TABLET PO SCH (21:20)
[2019-01-25 05:44] LABS: Basophils % 0.4 % (0.0-0.8); Eosinophils # 0.2 10*3/uL (0.0-0.87); Eosinophils % 2.1 % (0.00-10.9); Hemoglobin 8.7 GM/DL (12.0-16.0); Immature Granulocytes % 0.7 %; Immature Granulocytes Absolute 0.05 #; Lymphocytes # 1.9 10*3/uL (1.4-4.0); Lymphocytes % 24.8 % (21.3-54.2); Mean Corpuscular HGB Conc 33.5 GM/DL (32-36); Mean Corpuscular Volume 89.7 FL (87-102); Monocytes % 6.8 % (1.7-12.7); Neutrophils % 65.2 % (38.7-73.9); Platelet Count 135 T/CUMM (130-400); White Blood Count 7.5 T/CUMM (4-12)
[2019-01-25 05:50] LABS: INR 1.3; PT Patient Result 13.6 SECS (9.6-12.2)
[2019-01-25 06:03] LABS: Albumin 2.6 G/DL (3.4-5.0); Calcium 8.7 MG/DL (8.5-10.1); Osmolality,Calculated 281.8 MOS/KG (273-304); Total Protein 6.5 G/DL (6.4-8.3)
[2019-01-25] MEDS ORDERED: APIXABAN 2.5 MG TABLET PO SCH (09:00)
[2019-01-25] MEDS: amLODIPine 5 MG TABLET PO SCH (09:21)
[2019-01-25] MEDS: FLUoxetine 20 MG CAPSULE PO SCH (09:28)
[2019-01-25] MEDS: GABAPENTIN 400 MG CAPSULE PO SCH ×3 (09:28→21:46)
[2019-01-25] MEDS: METOPROLOL SUCCINATE XL 50 MG TABLET PO SCH (09:28)
[2019-01-25] MEDS: ROSUVASTATIN 20 MG TABLET PO SCH (09:28)
[2019-01-25] MEDS: MULTIVITAMIN (PRENATAL) TABLET PO SCH (09:28)
[2019-01-25] MEDS: PANTOPRAZOLE 40 MG VIAL IV SCH ×2 (09:28→21:47)
[2019-01-25] MEDS: NON-FORMULARY MEDICATION (Sucroferric Oxyhydroxide [Velphoro] 500 MG) PO SCH ×3 (09:29→16:21)
[2019-01-25] MEDS ORDERED: POTASSIUM CHLORIDE 20 MEQ/15 ML UDCUP PO ONE (11:41)
[2019-01-25] MEDS: METOPROLOL SUCCINATE XL 25 MG TABLET PO SCH (21:46)
[2019-01-25] MEDS: DONEPEZIL 10 MG TABLET PO SCH (21:52)
[2019-01-26 06:11] LABS: Basophils % 0.6 % (0.0-0.8); Eosinophils # 0.2 10*3/uL (0.0-0.87); Eosinophils % 2.6 % (0.00-10.9); Hematocrit 27.2 VOL% (35.7-47.0); Hemoglobin 8.9 GM/DL (12.0-16.0); Immature Granulocytes % 0.3 %; Immature Granulocytes Absolute 0.02 #; Lymphocytes # 1.9 10*3/uL (1.4-4.0); Lymphocytes % 29.9 % (21.3-54.2); Mean Corpuscular HGB Conc 32.7 GM/DL (32-36); Mean Corpuscular Volume 91.6 FL (87-102); Mean Platelet Volume 10.1 FL (9.6-12.0); Monocytes % 7.6 % (1.7-12.7); Platelet Count 130 T/CUMM (130-400); Red Blood Count 2.97 MC/CUMM (3.8-5.5); Red Cell Distribution Width 15.2 % (9.3-17.3); White Blood Count 6.5 T/CUMM (4-12)
[2019-01-26 06:12] LABS: INR 1.1; PT Patient Result 11.8 SECS (9.6-12.2)
[2019-01-26 06:22] LABS: Calcium 8.6 MG/DL (8.5-10.1); Osmolality,Calculated 291.5 MOS/KG (273-304)
[2019-01-26] MEDS: NON-FORMULARY MEDICATION (Sucroferric Oxyhydroxide [Velphoro] 500 MG) PO SCH ×3 (07:28→16:19)
[2019-01-26] MEDS: FLUoxetine 20 MG CAPSULE PO SCH (09:19)
[2019-01-26] MEDS: METOPROLOL SUCCINATE XL 25 MG TABLET PO SCH ×2 (09:19→22:11)
[2019-01-26] MEDS: ROSUVASTATIN 20 MG TABLET PO SCH (09:19)
[2019-01-26] MEDS: MULTIVITAMIN (PRENATAL) TABLET PO SCH (09:19)
[2019-01-26] MEDS: PANTOPRAZOLE 40 MG VIAL IV SCH ×2 (09:20→21:55)
[2019-01-26] MEDS: GABAPENTIN 400 MG CAPSULE PO SCH ×3 (09:20→22:11)
[2019-01-26] MEDS: DONEPEZIL 10 MG TABLET PO SCH (22:11)
[2019-01-27 05:35] LABS: PT Patient Result 11.2 SECS (9.6-12.2)
[2019-01-27 08:51] LABS: Basophils % 0.5 % (0.0-0.8); Eosinophils # 0.2 10*3/uL (0.0-0.87); Eosinophils % 2.1 % (0.00-10.9); Hematocrit 29.7 VOL% (35.7-47.0); Hemoglobin 9.8 GM/DL (12.0-16.0); Immature Granulocytes % 0.4 %; Immature Granulocytes Absolute 0.03 #; Lymphocytes # 1.5 10*3/uL (1.4-4.0); Lymphocytes % 17.7 % (21.3-54.2); Mean Corpuscular Volume 91.1 FL (87-102); Mean Platelet Volume 9.8 FL (9.6-12.0); Monocytes % 4.6 % (1.7-12.7); Neutrophils % 74.7 % (38.7-73.9); Platelet Count 147 T/CUMM (130-400); Red Blood Count 3.26 MC/CUMM (3.8-5.5); White Blood Count 8.3 T/CUMM (4-12)
[2019-01-27] MEDS: NON-FORMULARY MEDICATION (Sucroferric Oxyhydroxide [Velphoro] 500 MG) PO SCH ×3 (11:19→17:09)
[2019-01-27] MEDS: FLUoxetine 20 MG CAPSULE PO SCH (11:25)
[2019-01-27] MEDS: ROSUVASTATIN 20 MG TABLET PO SCH (11:25)
[2019-01-27] MEDS: CHOLECALCIFEROL 1,000 UNIT TABLET PO SCH (11:25)
[2019-01-27] MEDS: GABAPENTIN 400 MG CAPSULE PO SCH ×2 (11:25→14:35)
[2019-01-27] MEDS: MULTIVITAMIN (PRENATAL) TABLET PO SCH (11:26)
[2019-01-27] MEDS: PANTOPRAZOLE 40 MG VIAL IV SCH (11:26)
[2019-01-27] MEDS: METOPROLOL SUCCINATE XL 25 MG TABLET PO SCH (11:59)
[2019-01-27 16:02] VITALS: BP 129/56
[2019-01-29 14:58] LABS: Protein S Ag (Free) 45 % (65 - 160)
[2019-01-29 15:14] LABS: DRVVT Screen Ratio 1.11 ratio (<1.20); INR 1.1 (0.9-1.1)
[2019-01-30 10:31] LABS: Protein C Activity Plasma 101 % (70 - 150)
[2019-01-30 12:25] LABS: Protein S Activity Plasma 73 % (65 - 160)
== END 2019-01-27 17:39 | disposition home health service (06) | DRG 377 ==
LOC: EDUNIT# → EDBD → N.ED 15:35 → N.EDINP 17:38 → SUATTDRO 17:38 → N.2E 19:32
PROVIDERS: ADMIT Hospitalist; ATTEND Internal Medicine

== ENCOUNTER 2019-04-21 18:59 | Inpatient (IN) ==
[2019-04-21 19:49] LABS: Albumin 2.8 G/DL (3.4-5.0); Bilirubin,Total 0.5 MG/DL (0.2-1.0); Calcium 9.2 MG/DL (8.5-10.1); Osmolality,Calculated 267.4 MOS/KG (273-304); Total Protein 7.3 G/DL (6.4-8.3)
[2019-04-21 20:58] LABS: Basophils % 0.6 % (0.0-0.8); Eosinophils # 0.1 10*3/uL (0.0-0.87); Eosinophils % 1.1 % (0.00-10.9); Hemoglobin 10.5 GM/DL (12.0-16.0); Immature Granulocytes % 0.6 %; Immature Granulocytes Absolute 0.03 #; Lymphocytes # 1.1 10*3/uL (1.4-4.0); Mean Corpuscular HGB Conc 31.8 GM/DL (32-36); Mean Corpuscular Volume 96.5 FL (87-102); Mean Platelet Volume 10.4 FL (9.6-12.0); Monocytes % 11.1 % (1.7-12.7); Neutrophils % 66.6 % (38.7-73.9); Platelet Count 94 T/CUMM (130-400); Red Blood Count 3.42 MC/CUMM (3.8-5.5); Red Cell Distribution Width 14.6 % (9.3-17.3); White Blood Count 5.3 T/CUMM (4-12)
[2019-04-21 21:07] LABS: PT Patient Result 10.8 SECS (9.6-12.2); Partial Thromboplastin Time 26.6 SECS (20.8-36.0)
[2019-04-21] MEDS ORDERED: AMIODARONE INJ 450 MG in DEXTROSE 5% 241 ML IV SCH (21:30)
[2019-04-21] MEDS ORDERED: ALBUTEROL 2.5 MG/3 ML NEB RESP TX PRN (21:32)
[2019-04-21] MEDS ORDERED: AMIODARONE INJ 150 MG in DEXTROSE 5% 100 ML IV ONE (21:33)
[2019-04-21] MEDS: AMIODARONE INJ 450 MG in DEXTROSE 5% 241 ML IV SCH (22:30)
[2019-04-22] MEDS: AMIODARONE INJ 450 MG in DEXTROSE 5% 241 ML IV SCH ×3 (06:31→20:52)
[2019-04-22] MEDS ORDERED: hydrALAZINE 20 MG/1 ML VIAL IV PRN (08:15)
[2019-04-22] MEDS: amLODIPine 5 MG TABLET PO SCH (08:38)
[2019-04-22] MEDS: ROSUVASTATIN 20 MG TABLET PO SCH (08:39)
[2019-04-22] MEDS: PANTOPRAZOLE 40 MG TABLET PO SCH ×2 (08:39→20:51)
[2019-04-22] MEDS: FLUoxetine 20 MG CAPSULE PO SCH (08:39)
[2019-04-22] MEDS: cloNIDine 0.1 MG TABLET PO SCH ×2 (08:39→20:51)
[2019-04-22] MEDS: GABAPENTIN 400 MG CAPSULE PO SCH ×3 (08:39→20:51)
[2019-04-22] MEDS ORDERED: METOPROLOL SUCCINATE XL 50 MG TABLET PO SCH (09:00)
[2019-04-22] MEDS ORDERED: NON-FORMULARY MEDICATION (Sucroferric Oxyhydroxide [Velphoro] 500 MG) PO SCH (12:00)
[2019-04-22] MEDS ORDERED: MAGNESIUM HYDROXIDE SUSP 30 ML UDCUP PO PRN (17:07)
[2019-04-22] MEDS ORDERED: diphenhydrAMINE CAP 25 MG CAPSULE PO PRN (17:07)
[2019-04-22] MEDS: APIXABAN 2.5 MG TABLET PO SCH (20:51)
[2019-04-22] MEDS: METOPROLOL SUCCINATE XL 100 MG TABLET PO SCH (20:51)
[2019-04-22] MEDS: ASPIRIN EC 81 MG TABLET PO SCH (20:51)
[2019-04-22] MEDS ORDERED: AMIODARONE 200 MG TABLET PO SCH (21:00)
[2019-04-23 05:09] LABS: Basophils % 0.8 % (0.0-0.8); Eosinophils # 0.2 10*3/uL (0.0-0.87); Eosinophils % 3.5 % (0.00-10.9); Hematocrit 32.9 VOL% (35.7-47.0); Hemoglobin 10.3 GM/DL (12.0-16.0); Immature Granulocytes % 0.6 %; Immature Granulocytes Absolute 0.03 #; Lymphocytes # 1.6 10*3/uL (1.4-4.0); Lymphocytes % 30.6 % (21.3-54.2); Mean Corpuscular HGB Conc 31.3 GM/DL (32-36); Mean Corpuscular Volume 97.3 FL (87-102); Mean Platelet Volume 10.9 FL (9.6-12.0); Monocytes % 10.6 % (1.7-12.7); Neutrophils % 53.9 % (38.7-73.9); Red Blood Count 3.38 MC/CUMM (3.8-5.5); Red Cell Distribution Width 14.3 % (9.3-17.3); White Blood Count 5.2 T/CUMM (4-12)
[2019-04-23 05:17] LABS: Platelet Count 97 T/CUMM (130-400)
[2019-04-23 05:29] LABS: Hypochromasia 1+; Platelet Estimate Decreased
[2019-04-23 05:33] LABS: Calcium 8.9 MG/DL (8.5-10.1); Osmolality,Calculated 278.8 MOS/KG (273-304)
[2019-04-23] MEDS ORDERED: LIDOCAINE/PRILOCAINE CREAM 5 GM TUBE TOP PRN (08:22)
[2019-04-23] MEDS ORDERED: CHOLECALCIFEROL 1,000 UNIT TABLET PO SCH (09:00)
[2019-04-23] MEDS: FLUoxetine 20 MG CAPSULE PO SCH (13:02)
[2019-04-23] MEDS: APIXABAN 2.5 MG TABLET PO SCH ×2 (13:03→21:59)
[2019-04-23] MEDS: ROSUVASTATIN 20 MG TABLET PO SCH (13:03)
[2019-04-23] MEDS: GABAPENTIN 400 MG CAPSULE PO SCH ×3 (13:03→21:59)
[2019-04-23] MEDS: amLODIPine 5 MG TABLET PO SCH (13:03)
[2019-04-23] MEDS: PANTOPRAZOLE 40 MG TABLET PO SCH ×2 (13:03→21:59)
[2019-04-23] MEDS: METOPROLOL SUCCINATE XL 100 MG TABLET PO SCH ×2 (13:04→21:59)
[2019-04-23] MEDS: cloNIDine 0.1 MG TABLET PO SCH ×2 (13:04→21:59)
[2019-04-23] MEDS: ASPIRIN EC 81 MG TABLET PO SCH (21:59)
[2019-04-24] MEDS: ROSUVASTATIN 20 MG TABLET PO SCH (09:56)
[2019-04-24] MEDS: FLUoxetine 20 MG CAPSULE PO SCH (09:56)
[2019-04-24] MEDS: GABAPENTIN 400 MG CAPSULE PO SCH ×2 (09:56→15:45)
[2019-04-24] MEDS: APIXABAN 2.5 MG TABLET PO SCH (09:57)
[2019-04-24] MEDS: PANTOPRAZOLE 40 MG TABLET PO SCH (09:57)
[2019-04-24] MEDS: METOPROLOL SUCCINATE XL 100 MG TABLET PO SCH (09:57)
[2019-04-24] MEDS: cloNIDine 0.1 MG TABLET PO SCH (09:57)
[2019-04-24] MEDS: amLODIPine 5 MG TABLET PO SCH (09:57)
[2019-04-24 11:43] LABS: Basophils % 0.6 % (0.0-0.8); Eosinophils # 0.2 10*3/uL (0.0-0.87); Eosinophils % 3.2 % (0.00-10.9); Hemoglobin 10.2 GM/DL (12.0-16.0); Immature Granulocytes % 0.4 %; Immature Granulocytes Absolute 0.02 #; Lymphocytes # 1.6 10*3/uL (1.4-4.0); Lymphocytes % 33.2 % (21.3-54.2); Mean Corpuscular HGB Conc 30.9 GM/DL (32-36); Mean Corpuscular Volume 97.3 FL (87-102); Mean Platelet Volume 10.2 FL (9.6-12.0); Monocytes % 11.3 % (1.7-12.7); Neutrophils % 51.3 % (38.7-73.9); Platelet Count 125 T/CUMM (130-400); Red Blood Count 3.39 MC/CUMM (3.8-5.5); Red Cell Distribution Width 14.1 % (9.3-17.3); White Blood Count 4.7 T/CUMM (4-12)
[2019-04-24 11:58] VITALS: BP 133/75
[2019-04-24 12:03] LABS: Calcium 8.8 MG/DL (8.5-10.1); Osmolality,Calculated 272.2 MOS/KG (273-304)
== END 2019-04-24 16:06 | disposition home health service (06) | DRG 308 ==
LOC: N.ED 18:59 → N.EDINP 21:32 → N.CC 22:01 → N.TELEN 04-22 18:10
PROVIDERS: ADMIT Internal Medicine Cardiovascular Disease; ATTEND Internal Medicine Cardiovascular Disease

== ENCOUNTER 2019-12-08 11:39 | Observation (INO) ==
[2019-12-08 12:32] LABS: Basophils # 0.1 10*3/uL (0.0-0.2); Basophils % 0.7 % (0.0-0.8); Eosinophils # 0.2 10*3/uL (0.0-0.87); Eosinophils % 2.1 % (0.00-10.9); Hematocrit 34.8 VOL% (35.7-47.0); Hemoglobin 11.3 GM/DL (12.0-16.0); Immature Granulocytes % 0.4 %; Immature Granulocytes Absolute 0.03 #; Lymphocytes # 1.7 10*3/uL (1.4-4.0); Lymphocytes % 21.8 % (21.3-54.2); Mean Corpuscular HGB Conc 32.5 GM/DL (32-36); Mean Corpuscular Volume 92.8 FL (87-102); Mean Platelet Volume 10.5 FL (9.6-12.0); Monocytes % 4.8 % (1.7-12.7); Neutrophils % 70.2 % (38.7-73.9); Platelet Count 114 T/CUMM (130-400); Red Blood Count 3.75 MC/CUMM (3.8-5.5); Red Cell Distribution Width 14.1 % (9.3-17.3); White Blood Count 7.6 T/CUMM (4-12)
[2019-12-08 12:41] LABS: PT Patient Result 10.9 SECS (9.8-11.9)
[2019-12-08 12:57] LABS: Albumin 3.3 G/DL (3.4-5.0); Bilirubin,Total 0.5 MG/DL (0.2-1.0); Calcium 9.2 MG/DL (8.5-10.1); Osmolality,Calculated 277.7 MOS/KG (273-304); Total Protein 7.9 G/DL (6.4-8.3)
[2019-12-08] MEDS ORDERED: DEXTROSE 50% 25 GM/50 ML VIAL IV PRN (14:26)
[2019-12-08] MEDS ORDERED: ACETAMINOPHEN 325 MG TABLET PO PRN (14:26)
[2019-12-08] MEDS ORDERED: hydrALAZINE 20 MG/1 ML VIAL IV PRN (14:26)
[2019-12-08] MEDS ORDERED: GLUCAGON 1 MG VIAL IM PRN (14:26)
[2019-12-08] MEDS ORDERED: ONDANSETRON 4 MG/2 ML VIAL IV PRN (14:26)
[2019-12-08 15:50] LABS: Risk Ratio 2.27; Thyroid Stimulating Hormone 2.7 uIU/ml (0.358-3.74); VLDL CHOLESTEROL 21.4 MG/DL
[2019-12-08 16:16] LABS: Ferritin 840.7 ng/ml (8-252)
[2019-12-08] MEDS: NON-FORMULARY MEDICATION (Sucroferric Oxyhydroxide [Velphoro] 500 mg tablet,chewable) PO SCH (18:28)
[2019-12-08] MEDS ORDERED: DONEPEZIL 10 MG TABLET PO SCH (21:00)
[2019-12-08] MEDS ORDERED: ASPIRIN EC 81 MG TABLET PO SCH (21:00)
[2019-12-08] MEDS ORDERED: ROSUVASTATIN 20 MG TABLET PO SCH (21:00)
[2019-12-08] MEDS: GABAPENTIN 400 MG CAPSULE PO SCH (21:41)
[2019-12-08] MEDS: APIXABAN 2.5 MG TABLET PO SCH (21:41)
[2019-12-08] MEDS: PANTOPRAZOLE 40 MG TABLET PO SCH (21:42)
[2019-12-08] MEDS: METOPROLOL SUCCINATE XL 100 MG TABLET PO SCH (21:42)
[2019-12-09 04:24] LABS: Basophils % 0.4 % (0.0-0.8); Eosinophils # 0.1 10*3/uL (0.0-0.87); Eosinophils % 1.3 % (0.00-10.9); Hematocrit 33.7 VOL% (35.7-47.0); Hemoglobin 10.8 GM/DL (12.0-16.0); Immature Granulocytes % 0.4 %; Immature Granulocytes Absolute 0.04 #; Lymphocytes % 21.8 % (21.3-54.2); Mean Corpuscular Volume 95.7 FL (87-102); Mean Platelet Volume 11.1 FL (9.6-12.0); Monocytes % 7.5 % (1.7-12.7); Neutrophils % 68.6 % (38.7-73.9); Platelet Count 125 T/CUMM (130-400); Red Blood Count 3.52 MC/CUMM (3.8-5.5); Red Cell Distribution Width 14.1 % (9.3-17.3); White Blood Count 9.3 T/CUMM (4-12)
[2019-12-09 04:44] LABS: Calcium 9.4 MG/DL (8.5-10.1)
[2019-12-09 08:20] VITALS: BP 145/73
[2019-12-09] MEDS ORDERED: amLODIPine 5 MG TABLET PO SCH (09:00)
[2019-12-09] MEDS ORDERED: FLUoxetine 20 MG CAPSULE PO SCH (09:00)
[2019-12-09] MEDS ORDERED: PANTOPRAZOLE 40 MG TABLET PO SCH (09:00)
[2019-12-09] MEDS: PANTOPRAZOLE 40 MG TABLET PO SCH (09:32)
[2019-12-09] MEDS: METOPROLOL SUCCINATE XL 100 MG TABLET PO SCH (09:32)
[2019-12-09] MEDS: GABAPENTIN 400 MG CAPSULE PO SCH (09:33)
[2019-12-09] MEDS: NON-FORMULARY MEDICATION (Sucroferric Oxyhydroxide [Velphoro] 500 mg tablet,chewable) PO SCH (11:13)
[2019-12-09] MEDS: APIXABAN 2.5 MG TABLET PO SCH (11:13)
[2019-12-10] MEDS ORDERED: CHOLECALCIFEROL 1,000 UNIT TABLET PO SCH (09:00)
== END 2019-12-09 11:10 | disposition home or self-care (01) ==
LOC: N.ED 11:39 → N.EDINP 11:39 → N.3E 17:22
PROVIDERS: ADMIT Internal Medicine; ATTEND Internal Medicine

== ENCOUNTER 2020-08-06 04:17 | Observation (INO) ==
[2020-08-06] MEDS ORDERED: ONDANSETRON 4 MG/2 ML VIAL IV STA (04:41)
[2020-08-06] MEDS ORDERED: hydrALAZINE 20 MG/1 ML VIAL IV STA (04:41)
[2020-08-06 04:56] LABS: Basophils % 0.3 % (0.0-0.8); Eosinophils # 0.1 10*3/uL (0.0-0.87); Eosinophils % 1.3 % (0.00-10.9); Hematocrit 30.6 VOL% (35.7-47.0); Hemoglobin 9.4 GM/DL (12.0-16.0); Immature Granulocytes % 0.5 %; Immature Granulocytes Absolute 0.04 #; Lymphocytes # 1.1 10*3/uL (1.4-4.0); Lymphocytes % 13.5 % (21.3-54.2); Mean Corpuscular HGB Conc 30.7 GM/DL (32-36); Mean Corpuscular Volume 96.2 FL (87-102); Mean Platelet Volume 10.6 FL (9.6-12.0); Monocytes % 8.1 % (1.7-12.7); Neutrophils % 76.3 % (38.7-73.9); Platelet Count 126 T/CUMM (130-400); Red Blood Count 3.18 MC/CUMM (3.8-5.5); Red Cell Distribution Width 15.1 % (9.3-17.3); White Blood Count 7.9 T/CUMM (4-12)
[2020-08-06 05:01] LABS: PT Patient Result 11.4 SECS (10.5-12.0)
[2020-08-06 05:06] LABS: Alanine Aminotransferase < 9 U/L (13-56); Albumin 2.8 G/DL (3.4-5.0); Alkaline Phosphatase 74 U/L (45-117); Aspartate Amino Transferase 24 U/L (0-37); Blood Urea Nitrogen 44 MG/DL (7-18); Calcium 9.2 MG/DL (8.5-10.1); Carbon Dioxide 31 MMOL/L (21-32); Estimated Glom Filtration Rate 4 ML/MIN; Glucose 101 MG/DL (74-106); Sodium 136 MMOL/L (136-145)
[2020-08-06] MEDS ORDERED: GLUCAGON 1 MG VIAL IM PRN (08:11)
[2020-08-06] MEDS ORDERED: ONDANSETRON 4 MG/2 ML VIAL IV PRN (08:11)
[2020-08-06] MEDS ORDERED: ACETAMINOPHEN 325 MG TABLET PO PRN (08:11)
[2020-08-06] MEDS ORDERED: ALBUTEROL 2.5 MG/3 ML NEB RESP TX PRN (08:11)
[2020-08-06] MEDS ORDERED: DEXTROSE 50% 25 GM/50 ML VIAL IV PRN (08:11)
[2020-08-06] MEDS ORDERED: DOCUSATE SODIUM 100 MG CAPSULE PO PRN (08:11)
[2020-08-06] MEDS ORDERED: hydrALAZINE 20 MG/1 ML VIAL IV PRN (08:39)
[2020-08-06] MEDS ORDERED: NICOTINE 21 MG/24 HR PATCH TRANSDERM PRN (08:45)
[2020-08-06] MEDS: APIXABAN 2.5 MG TABLET PO SCH ×2 (09:58→21:16)
[2020-08-06] MEDS: cloNIDine 0.1 MG TABLET PO SCH (09:58)
[2020-08-06] MEDS: PANTOPRAZOLE 40 MG TABLET PO SCH (09:58)
[2020-08-06] MEDS: GABAPENTIN 300 MG CAPSULE PO SCH ×3 (09:58→21:16)
[2020-08-06] MEDS: METOPROLOL SUCCINATE XL 100 MG TABLET PO SCH ×2 (09:58→21:15)
[2020-08-06] MEDS: FLUoxetine 20 MG CAPSULE PO SCH (11:25)
[2020-08-06 13:49] LABS: Hepatitis B Surface Ag Quant < 0.10 Index; Hepatitis B Surface Ag Result Non-Reactive (NonReactive)
[2020-08-06] MEDS: amLODIPine 10 MG TABLET PO SCH (18:07)
[2020-08-06] MEDS ORDERED: ASPIRIN EC 81 MG TABLET PO SCH (21:00)
[2020-08-06] MEDS ORDERED: DONEPEZIL 10 MG TABLET PO SCH (21:00)
[2020-08-06] MEDS ORDERED: ROSUVASTATIN 20 MG TABLET PO SCH (21:00)
[2020-08-07 05:53] LABS: Basophils % 0.6 % (0.0-0.8); Eosinophils # 0.4 10*3/uL (0.0-0.87); Eosinophils % 5.9 % (0.00-10.9); Hematocrit 32.7 VOL% (35.7-47.0); Immature Granulocytes % 0.3 %; Immature Granulocytes Absolute 0.02 #; Lymphocytes # 1.2 10*3/uL (1.4-4.0); Lymphocytes % 18.1 % (21.3-54.2); Mean Corpuscular HGB Conc 30.6 GM/DL (32-36); Mean Corpuscular Volume 98.2 FL (87-102); Mean Platelet Volume 10.3 FL (9.6-12.0); Monocytes % 9.5 % (1.7-12.7); Neutrophils % 65.6 % (38.7-73.9); Platelet Count 144 T/CUMM (130-400); Red Blood Count 3.33 MC/CUMM (3.8-5.5); Red Cell Distribution Width 14.7 % (9.3-17.3); White Blood Count 6.6 T/CUMM (4-12)
[2020-08-07 06:09] LABS: Calcium 8.8 MG/DL (8.5-10.1); Osmolality,Calculated 278.8 MOS/KG (273-304); Potassium 5.4 MMOL/L (3.5-5.1)
[2020-08-07] MEDS: GABAPENTIN 300 MG CAPSULE PO SCH ×2 (09:25→18:15)
[2020-08-07] MEDS: FLUoxetine 20 MG CAPSULE PO SCH (09:25)
[2020-08-07] MEDS: PANTOPRAZOLE 40 MG TABLET PO SCH (09:25)
[2020-08-07] MEDS: APIXABAN 2.5 MG TABLET PO SCH (09:25)
[2020-08-07 12:25] VITALS: BP 160/75
[2020-08-07] MEDS: amLODIPine 10 MG TABLET PO SCH (13:28)
[2020-08-07] MEDS: METOPROLOL SUCCINATE XL 100 MG TABLET PO SCH (13:28)
[2020-08-07] MEDS: cloNIDine 0.1 MG TABLET PO SCH (18:15)
== END 2020-08-07 19:27 | disposition home health service (06) ==
LOC: EDUNIT# → N.EDINP 04:17 → N.ED 04:17 → SUATTDRO 08:11 → N.3E 13:02
PROVIDERS: ADMIT Hospitalist; ATTEND Hospitalist

== ENCOUNTER 2021-08-30 10:07 | Observation (INO) ==
[2021-08-30 12:04] LABS: Basophils % 0.5 % (0.0-0.8); Eosinophils # 0.2 10*3/uL (0.0-0.87); Eosinophils % 2.1 % (0.00-10.9); Hematocrit 35.9 VOL% (35.7-47.0); Hemoglobin 11.1 GM/DL (12.0-16.0); Immature Granulocytes % 0.4 %; Immature Granulocytes Absolute 0.03 #; Lymphocytes % 12.9 % (21.3-54.2); Mean Corpuscular HGB Conc 30.9 GM/DL (32-36); Mean Corpuscular Volume 92.1 FL (87-102); Mean Platelet Volume 11.1 FL (9.6-12.0); Monocytes # 0.7 10*3/uL (0.11-0.8); Monocytes % 8.7 % (1.7-12.7); Neutrophils % 75.4 % (38.7-73.9); Platelet Count 94 T/CUMM (130-400); Red Cell Distribution Width 15.9 % (9.3-17.3); White Blood Count 7.7 T/CUMM (4-12)
[2021-08-30 12:12] LABS: PT Patient Result 11.1 SECS (10.5-12.0)
[2021-08-30 12:25] LABS: Elliptocytes Few; Platelet Estimate Adequate; Polychromasia Slight
[2021-08-30 12:27] LABS: Alanine Aminotransferase < 6 U/L (13-56); Albumin 2.3 G/DL (3.4-5.0); Alkaline Phosphatase 83 U/L (45-117); Aspartate Amino Transferase 16 U/L (0-37); Blood Urea Nitrogen 26 MG/DL (7-18); Calcium 9.6 MG/DL (8.5-10.1); Carbon Dioxide 30 MMOL/L (21-32); Chloride 97 MMOL/L (98-107); Glucose 65 MG/DL (74-106); Osmolality,Calculated 270.2 MOS/KG (273-304); Potassium 4.9 MMOL/L (3.5-5.1); Sodium 134 MMOL/L (136-145); Total Protein 7.1 G/DL (6.4-8.2)
[2021-08-30] MEDS ORDERED: ENOXAPARIN 80 MG/0.8 ML SYRINGE SUBCUT STA (12:38)
[2021-08-30] MEDS ORDERED: DEXTROSE 10% 250 ML BAG IV PRN (14:13)
[2021-08-30] MEDS ORDERED: GLUCAGON 1 MG VIAL IM PRN (14:13)
[2021-08-30] MEDS ORDERED: DOCUSATE SODIUM 100 MG CAPSULE PO PRN (14:13)
[2021-08-30] MEDS ORDERED: ACETAMINOPHEN 325 MG TABLET PO PRN (14:13)
[2021-08-30] MEDS ORDERED: ONDANSETRON 4 MG/2 ML VIAL IV PRN (14:13)
[2021-08-30] MEDS ORDERED: INSULIN LISPRO 100 UNIT/ML SUBCUT SCH (16:30)
[2021-08-30] MEDS: CARBIDOPA/LEVODOPA 25-100 MG TABLET PO SCH ×2 (16:41→20:56)
[2021-08-30] MEDS: levETIRAcetam 500 MG TABLET PO SCH (20:56)
[2021-08-30] MEDS: METOPROLOL SUCCINATE XL 100 MG TABLET PO SCH (20:56)
[2021-08-31 05:18] LABS: Basophils % 0.6 % (0.0-0.8); Eosinophils # 0.2 10*3/uL (0.0-0.87); Eosinophils % 2.9 % (0.00-10.9); Hematocrit 34.1 VOL% (35.7-47.0); Hemoglobin 10.5 GM/DL (12.0-16.0); Immature Granulocytes % 0.8 %; Immature Granulocytes Absolute 0.05 #; Lymphocytes % 15.9 % (21.3-54.2); Mean Corpuscular HGB Conc 30.8 GM/DL (32-36); Mean Corpuscular Volume 92.7 FL (87-102); Mean Platelet Volume 10.7 FL (9.6-12.0); Monocytes # 0.7 10*3/uL (0.11-0.8); Monocytes % 10.9 % (1.7-12.7); Neutrophils % 68.9 % (38.7-73.9); Platelet Count 104 T/CUMM (130-400); Red Blood Count 3.68 MC/CUMM (3.8-5.5); Red Cell Distribution Width 15.6 % (9.3-17.3); White Blood Count 6.5 T/CUMM (4-12)
[2021-08-31 05:39] LABS: Calcium 9.4 MG/DL (8.5-10.1); Osmolality,Calculated 274.2 MOS/KG (273-304); Potassium 4.6 MMOL/L (3.5-5.1)
[2021-08-31] MEDS: CARBIDOPA/LEVODOPA 25-100 MG TABLET PO SCH ×3 (10:19→22:49)
[2021-08-31] MEDS: levETIRAcetam 500 MG TABLET PO SCH ×2 (10:19→22:49)
[2021-08-31] MEDS: ATORVASTATIN 80 MG TABLET PO SCH (10:20)
[2021-08-31] MEDS: PANTOPRAZOLE 40 MG TABLET PO SCH (10:20)
[2021-08-31] MEDS: amLODIPine 5 MG TABLET PO SCH (10:20)
[2021-08-31] MEDS: METOPROLOL SUCCINATE XL 100 MG TABLET PO SCH ×2 (10:20→22:49)
[2021-08-31] MEDS: FLUoxetine 20 MG CAPSULE PO SCH (10:25)
[2021-08-31] MEDS ORDERED: ENOXAPARIN 80 MG/0.8 ML SYRINGE SUBCUT SCH (12:00)
[2021-08-31] MEDS ORDERED: HEPARIN 10,000 UNIT/10 ML VIAL IV PRN (14:54)
[2021-09-01] MEDS ORDERED: APIXABAN 5 MG TABLET PO SCH (09:00)
[2021-09-01] MEDS: levETIRAcetam 500 MG TABLET PO SCH (10:29)
[2021-09-01] MEDS: ATORVASTATIN 80 MG TABLET PO SCH (10:29)
[2021-09-01] MEDS: METOPROLOL SUCCINATE XL 100 MG TABLET PO SCH (10:29)
[2021-09-01] MEDS: FLUoxetine 20 MG CAPSULE PO SCH (10:30)
[2021-09-01] MEDS: CARBIDOPA/LEVODOPA 25-100 MG TABLET PO SCH (10:30)
[2021-09-01] MEDS: amLODIPine 5 MG TABLET PO SCH (10:30)
[2021-09-01] MEDS: PANTOPRAZOLE 40 MG TABLET PO SCH (10:30)
[2021-09-01 12:30] VITALS: BP 127/75
== END 2021-09-01 13:32 ==
LOC: N.ED 10:07 → N.EDINP 10:07 → N.TELEN 15:59
PROVIDERS: ADMIT Internal Medicine; ATTEND Internal Medicine

== ENCOUNTER 2022-03-06 12:35 | Observation (INO) ==
[2022-03-06] MEDS ORDERED: ASPIRIN 325 MG TABLET PO STA (13:58)
[2022-03-06] MEDS ORDERED: CYCLOBENZAPRINE 10 MG TABLET PO STA (13:58)
[2022-03-06 14:26] LABS: Basophils # 0.1 10*3/uL (0.0-0.2); Basophils % 0.4 % (0.0-0.8); Eosinophils # 0.2 10*3/uL (0.0-0.87); Eosinophils % 1.5 % (0.00-10.9); Hematocrit 31.5 VOL% (35.7-47.0); Hemoglobin 9.9 GM/DL (12.0-16.0); Immature Granulocytes % 0.5 %; Immature Granulocytes Absolute 0.07 #; Lymphocytes % 7.3 % (21.3-54.2); Mean Corpuscular HGB Conc 31.4 GM/DL (32-36); Mean Corpuscular Volume 95.5 FL (87-102); Mean Platelet Volume 9.5 FL (9.6-12.0); Monocytes # 0.7 10*3/uL (0.11-0.8); Monocytes % 4.8 % (1.7-12.7); Neutrophils % 85.5 % (38.7-73.9); Platelet Count 179 T/CUMM (130-400); Red Cell Distribution Width 15.9 % (9.3-17.3); White Blood Count 14.2 T/CUMM (4-12)
[2022-03-06 14:36] LABS: INR 1.1; PT Patient Result 11.9 SECS (10.1-12.1)
[2022-03-06 14:50] LABS: Alanine Aminotransferase < 6 U/L (13-56); Albumin 2.7 G/DL (3.4-5.0); Alkaline Phosphatase 111 U/L (45-117); Aspartate Amino Transferase 10 U/L (0-37); Blood Urea Nitrogen 50 MG/DL (7-18); Calcium 8.7 MG/DL (8.5-10.1); Carbon Dioxide 26 MMOL/L (21-32); Chloride 101 MMOL/L (98-107); Glucose 85 MG/DL (74-106); Sodium 136 MMOL/L (136-145)
[2022-03-06 14:56] LABS: Potassium 6.2 MMOL/L (3.5-5.1)
[2022-03-06] MEDS ORDERED: ONDANSETRON 4 MG/2 ML VIAL IV PRN (15:34)
[2022-03-06] MEDS ORDERED: ACETAMINOPHEN 325 MG TABLET PO PRN (15:38)
[2022-03-06] MEDS ORDERED: INSULIN REGULAR 10 UNIT, CALCIUM GLUCONATE 1,000 MG in DEXTROSE 10% 250 ML IV ONE (15:38)
[2022-03-06] MEDS ORDERED: DONEPEZIL 10 MG TABLET PO SCH (21:00)
[2022-03-06] MEDS ORDERED: GABAPENTIN 300 MG CAPSULE ONE (22:09)
[2022-03-06] MEDS: levETIRAcetam 500 MG TABLET PO SCH (22:32)
[2022-03-06] MEDS: METOPROLOL SUCCINATE XL 100 MG TABLET PO SCH (22:33)
[2022-03-07 06:04] LABS: Alanine Aminotransferase < 9 U/L (13-56); Albumin 2.3 G/DL (3.4-5.0); Alkaline Phosphatase 97 U/L (45-117); Aspartate Amino Transferase 11 U/L (0-37); Blood Urea Nitrogen 61 MG/DL (7-18); Carbon Dioxide 25 MMOL/L (21-32); Chloride 101 MMOL/L (98-107); Glucose 68 MG/DL (74-106); Osmolality,Calculated 287.8 MOS/KG (273-304); Sodium 137 MMOL/L (136-145); Total Protein 7.3 G/DL (6.4-8.2)
[2022-03-07 06:13] LABS: Potassium 6.2 MMOL/L (3.5-5.1)
[2022-03-07 06:30] LABS: Basophils # 0.1 10*3/uL (0.0-0.2); Basophils % 0.4 % (0.0-0.8); Eosinophils # 0.5 10*3/uL (0.0-0.87); Eosinophils % 4.5 % (0.00-10.9); Hematocrit 28.9 VOL% (35.7-47.0); Hemoglobin 8.8 GM/DL (12.0-16.0); Immature Granulocytes % 0.8 %; Immature Granulocytes Absolute 0.09 #; Lymphocytes # 1.2 10*3/uL (1.4-4.0); Lymphocytes % 10.3 % (21.3-54.2); Mean Corpuscular HGB Conc 30.4 GM/DL (32-36); Mean Corpuscular Volume 99.3 FL (87-102); Mean Platelet Volume 9.2 FL (9.6-12.0); Monocytes # 0.9 10*3/uL (0.11-0.8); Monocytes % 7.4 % (1.7-12.7); Neutrophils % 76.6 % (38.7-73.9); Platelet Count 172 T/CUMM (130-400); Red Blood Count 2.91 MC/CUMM (3.8-5.5); Red Cell Distribution Width 15.5 % (9.3-17.3); White Blood Count 11.7 T/CUMM (4-12)
[2022-03-07 08:00] VITALS: BP 147/66
[2022-03-07] MEDS ORDERED: CARBIDOPA/LEVODOPA 25-100 MG TABLET PO SCH (08:00)
[2022-03-07] MEDS: levETIRAcetam 500 MG TABLET PO SCH (08:27)
[2022-03-07] MEDS: METOPROLOL SUCCINATE XL 100 MG TABLET PO SCH (08:28)
[2022-03-07] MEDS ORDERED: GABAPENTIN 600 MG TABLET PO SCH (09:00)
[2022-03-07] MEDS ORDERED: ATORVASTATIN 80 MG TABLET PO SCH (09:00)
[2022-03-07] MEDS ORDERED: RIVAROXABAN 2.5 MG TABLET PO SCH (09:00)
[2022-03-07] MEDS ORDERED: PANTOPRAZOLE 40 MG TABLET PO SCH (09:00)
[2022-03-07] MEDS ORDERED: FLUoxetine 20 MG CAPSULE PO SCH (09:00)
[2022-03-07] MEDS ORDERED: CHOLECALCIFEROL 1,000 UNIT TABLET PO SCH (09:00)
[2022-03-07] MEDS ORDERED: amLODIPine 5 MG TABLET PO SCH (09:00)
[2022-03-07] MEDS ORDERED: CEFDINIR 300 MG CAPSULE PO SCH (09:00)
[2022-03-07] MEDS ORDERED: EPOETIN ALFA-EPBX 4,000 UNIT/ML VIAL IV PRN (12:26)
== END 2022-03-07 16:15 | disposition home health service (06) ==
LOC: N.EDINP 12:35 → N.ED 12:35 → SUATTDRO 15:34 → N.EDINP 03-07 05:01 → N.2W 03-07 06:09
PROVIDERS: ADMIT Internal Medicine; ATTEND Internal Medicine